=== PATIENT | female | born 1965 | race African-American/Black ===

== ENCOUNTER 2021-10-14 17:43 | Inpatient (IN) | payer OTHER, MEDICAID, SELFPAY ==
--- NOTE | 2021-10-14 | ECG_ITS ---
Test Reason : DYSPNEA Blood Pressure : / mmHG Vent. Rate : 096 BPM Atrial Rate : 096 BPM P-R Int : 158 ms QRS Dur : 086 ms QT Int : 372 ms P-R-T Axes : 053 -07 076 degrees QTc Int : 469 ms Sinus rhythm with Premature atrial complexes Cannot rule out Anterior infarct , age undetermined Abnormal ECG No previous ECGs available Referred By: Generic ED Physician Electronically Signed By:JUDIE VAZQUEZ MD
--- NOTE | ~2021-10-14 | XR_ITS ---
EXAMINATION: XR CHEST CLINICAL INFORMATION: Dyspnea COMPARISON: None TECHNIQUE: 2 views of the chest were obtained. FINDINGS: No significant abnormality is noted involving the heart, lungs, mediastinum, bony thorax or soft tissues. XR/XR chest 2V IMPRESSION: Unremarkable examination.
--- NOTE | ~2021-10-14 | CT_ITS ---
EXAMINATION: CT ABDOMEN AND PELVIS WITHOUT CONTRAST CLINICAL INFORMATION: Acute renal failure COMPARISON: None TECHNIQUE: Multidetector volumetric imaging was performed from the superior aspect of the liver through the pubic symphysis. Sagittal and coronal reformatted images were obtained on the technologist's workstation. This CT examination was performed using dose optimization techniques as appropriate, variously including the following: *Automated exposure control *Adjustment of mA and/or kV according to patient size (this includes techniques or standardized protocols for targeted exams where dose is matched to indication/reason for exam; i.e. extremities or head) *Use of iterative reconstruction technique DLP: 712 mGy-cm FINDINGS: LUNG BASES: There is a 0.4 cm right lower lobe nodule seen on series 4 image 1. There is a separate 0.4 cm right lower lobe nodule on image 14. Right lower lobe groundglass nodular density measures 0.6 cm on image 28. Additional small nodules are present in the right middle lobe. Coronary artery calcifications. LIVER, GALLBLADDER, AND BILIARY TREE: The liver is enlarged measuring 21 cm in CC dimension. There is normal shape and attenuation. No focal hepatic lesion or biliary ductal dilatation is present. Cholecystectomy. PANCREAS: There is one calcification seen in the pancreatic parenchyma at the level of the pancreatic tail. Otherwise the parenchyma is homogenous with no ductal dilatation. SPLEEN: Unremarkable. ADRENAL GLANDS: Unremarkable. KIDNEYS AND URETERS: The kidneys are normal in size, shape, and attenuation. No hydronephrosis, hydroureter, or calculi seen. No perinephric stranding. Calcification in the hilar region of the right kidney is likely vascular. BLADDER: Unremarkable. GASTROINTESTINAL TRACT: The stomach is unremarkable. Normal caliber of the small bowel. No obstruction. Normal appendix. No colonic wall thickening or inflammatory change. Scattered diverticulosis without diverticulitis. No free air or free fluid. ABDOMINAL WALL: No significant hernia is appreciated. LYMPH NODES: No lymphadenopathy. Appearance of a angela mesentery . VASCULAR: Normal caliber aorta with mild atherosclerotic calcification. PELVIC VISCERA: The uterus and adnexa are unremarkable. OSSEOUS STRUCTURES: No acute or suspicious osseous abnormality. Mild degenerative change in the spine. CT/CT abdomen pelvis wo con IMPRESSION: No acute findings in the abdomen or pelvis. No hydronephrosis or nephrolithiasis. Hepatomegaly. Multiple pulmonary nodules are seen at the lung bases. This includes solid nodules measuring up to 0.4 cm groundglass nodule at 0.6 cm. According to the UPDATED 2017 Fleischner Society recommendations, the advised follow-up imaging for a single pure ground-glass nodule measuring 6 mm or greater is: CT at 6-12 months to confirm persistence, then CT every 2 years until 5 years if it persists. Fleischner guidelines were followed.
--- NOTE | ~2021-10-14 | US_ITS ---
EXAMINATION: US VENOUS ULTRASOUND WITH DOPPLER LOWER EXTREMITY, BILATERAL CLINICAL INFORMATION: Leg swelling. COMPARISON: None TECHNIQUE: Ultrasound of the deep veins is performed from the hip to the calf with compression sonography and color and pulse Doppler assessment. Spectral analysis with color-flow imaging is performed. FINDINGS: RIGHT: There is normal venous compression and respiratory variation and augmented flow. The visualized common femoral vein, superficial femoral vein, profunda femoral vein, popliteal vein, and the trifurcation region shows no evidence of deep venous thrombosis. There is no significant popliteal fossa cyst. Mild subcutaneous edema in the calves bilaterally. LEFT: There is normal venous compression and respiratory variation and augmented flow. The visualized common femoral vein, superficial femoral vein, profunda femoral vein, popliteal vein, and the trifurcation region shows no evidence of deep venous thrombosis. There is no significant popliteal fossa cyst. Mild subcutaneous edema in the calves bilaterally. If the patient's symptoms persist, followup ultrasound in 5 days 7 days might be of value to exclude proximal propagation from a non-visualized calf vein. US/US venous duplex LE BI IMPRESSION: No evidence for deep venous thrombosis in the visualized veins of the bilateral lower extremities.
[2021-10-14 17:46] VITALS: BP 159/105; PULSE 98; RESP 20; TEMP 36.4; O2SAT 98; BMI 33.8
[2021-10-14 19:05] LABS: MANUAL DIFF FLAG NO
[2021-10-14 19:13] LABS: Basophils Percent Auto 0.3 % (0-2); Eosinophils Absolute Auto 0.3 X10*3/uL (0.0-0.4); Eosinophils Percent Auto 4.5 % (0-4); Hematocrit 30.9 % (37.0-47.0); Hemoglobin 9.8 g/dl (12.0-16.0); Imm Gran Abs Auto 0.02 X10*3/uL (0.00-0.03); Imm Gran Pct Auto 0.3 % (0.0-0.4); Lymphocytes Percent Auto 33.8 % (20-40); Mean Corpuscular HGB Conc 31.7 g/dl (31.0-35.0); Mean Corpuscular Hemoglobin 28.7 pg (27.0-33.0); Mean Corpuscular Volume 90.4 fL (80.0-98.0); Mean Platelet Volume 10.1 fL (9.4-12.3); Monocytes Absolute Auto 0.6 X10*3/uL (0.1-1.2); Monocytes Percent Auto 9.2 % (2-11); Neutrophils Absolute Auto 3.1 x10*3/uL (2.0-8.3); Neutrophils Percent Auto 51.9 % (45-73); Platelet Count 216 X10*3/uL (160-400); Red Blood Count 3.42 X10*6/uL (4.20-5.50); Red Cell Distribution Width 14.9 % (11.0-16.0)
[2021-10-14 19:21] LABS: Anion Gap 14 (12-20); Blood Urea Nitrogen 31 mg/dL (9-16); Calcium 9.6 mg/dL (8.4-10.2); Carbon Dioxide 21 mmol/L (22-29); Chloride 110 mmol/L (96-108); Creatinine Clr Calc Pharmacy 26.9; Estimated Glomerular Filt Rate 22; Glucose Random 273 mg/dL (60-115); Potassium 4.1 mmol/L (3.3-5.1); Sodium 141 mmol/L (135-145)
[2021-10-14 21:04] VITALS: O2SAT 97
--- NOTE | 2021-10-14 21:25 | ED_ITS ---
HPI - General Adult General Chief complaint: Dyspnea Stated complaint: Asthma Time Seen by Provider: 10/14/21 21:21 Source: patient and family (son) Mode of arrival: ambulatory Limitations: no limitations History of Present Illness HPI narrative: Patient is a 56 year old female presenting to the emergency department today with increased SOB x1 week. Patient states that over the last week, she has had an increase in shortness of breath. Patient states that she has a history of diabetes that she doesn't manage and hypertension for which she does take medications. Patient states that she has felt more winded and has been having lower leg swelling. Patient denies any dizziness, lightheadedness, abdominal pain, nausea, vomiting, fever, chills, blurry vision, double vision, loss of vision, chest pain, back pain, night sweats, pain with urination, increased urinary frequency, increased urinary urgency, blood in her urine or stool, syncope or a near syncopal episode, recent trauma or falls, bowel incontinence, bladder incontinence, bowel retention, bladder retention, or any other complaints at this time. Onset (ago): week(s) (1) Relieving factors: none Associated symptoms: shortness of breath Treatments prior to arrival: none Related Data Home Medications Medication Instructions Recorded Confirmed amlodipine 10 mg tablet 1 tab PO DAILY 10/14/21 10/14/21 clonidine HCl 0.1 mg tablet 1 tab PO DAILY 10/14/21 10/14/21 insulin glargine 100 unit/mL (3 16 unit SUBCUT BEDTIME 10/14/21 10/14/21 mL) subcutaneous pen (Lantus Solostar U-100 Insulin) Allergies Allergy/AdvReac Type Severity Reaction Status Date / Time shellfish derived Allergy Anaphylaxis Verified 10/14/21 17:49 Review of Systems Constitutional: Constitutional: Reports no additional constitutional complaints, Denies chills, Denies fever(s) and Denies night sweats Eyes: Eyes: Reports no additional eye complaints, Denies blurry vision, Denies change in vision, Denies diplopia, Denies eye discharge, Denies loss of vision and Denies eye pain ENT: Denies dizziness Cardiovascular: Cardiovascular: Reports no additional cardiovascular complaints, Denies chest pain, Reports leg edema, Denies lightheadedness, Denies Loss of Consciousness and Reports dyspnea Respiratory: Respiratory: Reports no additional respiratory complaints and Reports dyspnea Gastrointestinal: Gastrointestinal: Reports no additional gastrointestinal complaints, Denies abdominal pain, Denies melena, Denies hematochezia, Denies change in bowel habits and Denies change in stool character Genitourinary: Genitourinary: Denies hematuria, Denies urinary frequency, Denies dysuria, Denies urinary incontinence, Denies urinary hesitancy and Denies urinary urgency Musculoskeletal: Musculoskeletal: Reports no additional musculoskeletal complaints, Denies numbness and Denies tingling Neurologic: Denies dizziness, Denies loss of vision, Denies numbness and Denies tingling Psychiatric: Psychiatric: Reports no additional psychiatric complaints Endocrine: Endocrine: Reports no additional endocrine complaints Hematologic/Lymphatic: Hematologic/Lymphatic: Reports no additional hematologic/lymphatic complaints Allergic/Immunologic: Allergic/Immunologic: Reports no additional allergic/immunologic complaints PMFSH Past Medical History Attestation statement: The following information was validated with the patient. Source: old records reviewed Medical History Asthma Diabetes 1.5, managed as type 2 HTN (hypertension) Social History Social History Advance Directives: No Advance Directives Information Provided: No Physical Exam ED Vital Signs: Vital Signs - 24 hr 10/14/21 17:46 10/14/21 21:04 10/14/21 22:10 Temperature 97.5 F Pulse Rate 98 100 Respiratory Rate 20 16 Blood Pressure 159/105 H Pulse Oximetry 98 97 99 10/14/21 22:27 Temperature 98.2 F Pulse Rate 98 Respiratory Rate 15 Blood Pressure 168/89 H Pulse Oximetry 98 BMI result Body Mass Index 33.8 Const General: cooperative, no acute distress, alert and awake Nutritional Appearance: well nourished Orientation/consciousness: patient oriented x3 Limitations: no limitations [facility] Head: Yes normal to inspection and Yes atraumatic Ears: hearing grossly normal bilaterally and external ears normal General nose exam: Normal external nose present, no nasal discharge noted and no epistaxis Face and sinus: Yes normal facial exam, No abrasion and No laceration Mouth: Normal oral and palatal mucosa present, no drooling and no muffled voice Eyes General: appearance normal, both eyes and all related structures Periorbital: periorbital findings normal Eyelids: Yes eyelids normal Conjunctivae: conjunctivae normal Pupils: Equal, round and reactive pupils present EOM: EOMs intact bilaterally Neck Neck: Yes normal visual inspection, Yes full ROM and Yes no lymphadenopathy Chest Chest palpation & inspection: normal inspection of the chest Resp Effort & Inspection: normal respiratory effort and able to speak in complete sentences Auscultation: other (patient's lung sounds are restricted bilaterally) Cardio Rate: regular rate Rhythm: regular rhythm GI Inspection: Yes normal to inspection Neuro General: patient oriented x3 and moves all extremities Cranial nerves: Yes Equal, round and reactive pupils present Cognition (Neuro): normal cognition Motor exam (neuro): 5/5 motor strength present throughout Sensory Exam: Normal double simultaneous stimulation for sensation Coordination: [id number] test normal Extrem General: Yes normal to inspection, Yes full ROM and Yes capillary refill normal Psych Appearance: grossly normal Mental Status: mental status grossly normal Affect: normal affect Attitude: cooperative Thought process: Normal thought process present Thought content: Normal thought content present Insight: Good insight present (Psych) Medical Decision Making MDM Narrative Medical decision making narrative: Patient is a 56 year old female presenting to the emergency department today with increased shortness of breath. Patient's physical exam showed bilateral restricted lung sounds and mild lower leg edema. Patient's blood work showed an elevated BUN and Creatinine, consistent with an KATHIE. Patient's urine showed elevated glucose levels. Patient's EKG was unremarkable. Patient's chest x-ray and abdominal CT showed no acute process. I explained my physical exam findings as well as all test results to the patient and the patient's son. I answered all questions asked by the patient and the patient's son. I called and spoke to Dr. Bishop who agreed to admission of the patient. Patient and the patient's son verbalized agreement and understanding with this treatment plan and admission. Differential Diagnosis Differential Diagnosis: KATHIE, uncontrolled diabetes Medical Records Medical records reviewed: Yes I reviewed the patient's medical records. Lab Data Lab results reviewed: Yes I reviewed the patient's lab results. Result diagrams: 10/14/21 19:00 10/14/21 19:00 Labs: Lab Results 10/14/21 10/14/21 10/14/21 Range/Units 19:00 19:00 19:00 WBC 6.0 (4.8-10.8) X10*3/uL RBC 3.42 L (4.20-5.50) X10*6/uL Hgb 9.8 L (12.0-16.0) g/dl Hct 30.9 L (37.0-47.0) % MCV 90.4 (80.0-98.0) fL MCH 28.7 (27.0-33.0) pg MCHC 31.7 (31.0-35.0) g/dl RDW 14.9 (11.0-16.0) % Plt Count 216 (160-400) X10*3/uL MPV 10.1 (9.4-12.3) fL Immature Gran % (Auto) 0.3 (0.0-0.4) % Neut % (Auto) 51.9 (45-73) % Lymph % (Auto) 33.8 (20-40) % [place] % (Auto) 9.2 (2-11) % Eos % (Auto) 4.5 H (0-4) % Baso % (Auto) 0.3 (0-2) % Lymph # (Auto) 2.0 (1.2-4.9) X10*3/uL [place] # (Auto) 0.6 (0.1-1.2) X10*3/uL Eos # (Auto) 0.3 (0.0-0.4) X10*3/uL Baso # (Auto) 0.0 (0.0-0.2) X10*3/uL Abs Immat Gran (auto) 0.02 (0.00-0.03) X10*3/uL Absolute Neuts (auto) 3.1 (2.0-8.3) x10*3/uL Absolute Nucleated RBC 0.000 (0.0-0.012) X10*3/uL Nucleated RBC % (auto) 0.0 (0.0-0.2) /100WBC Sodium 141 (135-145) mmol/L Potassium 4.1 (3.3-5.1) mmol/L Chloride 110 H (96-108) mmol/L Carbon Dioxide 21 L (22-29) mmol/L Anion Gap 14 (12-20) BUN 31 H (9-16) mg/dL Creatinine 2.34 H (0.5-1.4) mg/dL Estim Creat Clear Calc 26.9 Estimated GFR 22 Random Glucose 273 H (60-115) mg/dL Calcium 9.6 (8.4-10.2) mg/dL Magnesium 1.7 (1.6-2.6) mg/dL Total Bilirubin 0.2 (0.0-1.0) mg/dL Direct Bilirubin < 0.2 (0.0-0.5) mg/dL AST 11 (5-31) U/L ALT 6 (0-31) U/L Alkaline Phosphatase 116 (39-117) U/L Total Creatine Kinase 92 (26-140) U/L Troponin I High Sens 8.5 (<3.5-17.0) ng/L B-Natriuretic Peptide 26 (<100) pg/mL Total Protein 7.1 (6.5-8.0) g/dL Albumin 4.1 (3.5-5.0) g/dL Urine Color Urine Appearance Urine pH (5.0-8.0) Ur Specific [place] (1.005-1.025) Urine Protein (NEG-TRACE) MG/DL Urine Glucose (UA) (NEG) MG/DL Urine Ketones (NEG) MG/DL Urine Blood (NEG) Urine Nitrite (NEG) Ur Leukocyte Esterase (NEG) Urine RBC (0) /HPF Urine WBC (0-4) /HPF Ur Squamous Epith Cells /LPF Urine Bacteria /LPF COVID-19 (LUCY) (Negative) COVID-19 Clin Com Influenza Type A (JEMAL) (Negative) Influenza Type B (JEMAL) (Negative) Influenza A & B Note 10/14/21 10/14/21 10/14/21 Range/Units 22:01 22:01 22:01 WBC (4.8-10.8) X10*3/uL RBC (4.20-5.50) X10*6/uL Hgb (12.0-16.0) g/dl Hct (37.0-47.0) % MCV (80.0-98.0) fL MCH (27.0-33.0) pg MCHC (31.0-35.0) g/dl RDW (11.0-16.0) % Plt Count (160-400) X10*3/uL MPV (9.4-12.3) fL Immature Gran % (Auto) (0.0-0.4) % Neut % (Auto) (45-73) % Lymph % (Auto) (20-40) % [place] % (Auto) (2-11) % Eos % (Auto) (0-4) % Baso % (Auto) (0-2) % Lymph # (Auto) (1.2-4.9) X10*3/uL [place] # (Auto) (0.1-1.2) X10*3/uL Eos # (Auto) (0.0-0.4) X10*3/uL Baso # (Auto) (0.0-0.2) X10*3/uL Abs Immat Gran (auto) (0.00-0.03) X10*3/uL Absolute Neuts (auto) (2.0-8.3) x10*3/uL Absolute Nucleated RBC (0.0-0.012) X10*3/uL Nucleated RBC % (auto) (0.0-0.2) /100WBC Sodium (135-145) mmol/L Potassium (3.3-5.1) mmol/L Chloride (96-108) mmol/L Carbon Dioxide (22-29) mmol/L Anion Gap (12-20) BUN (9-16) mg/dL Creatinine (0.5-1.4) mg/dL Estim Creat Clear Calc Estimated GFR Random Glucose (60-115) mg/dL Calcium (8.4-10.2) mg/dL Magnesium (1.6-2.6) mg/dL Total Bilirubin (0.0-1.0) mg/dL Direct Bilirubin (0.0-0.5) mg/dL AST (5-31) U/L ALT (0-31) U/L Alkaline Phosphatase (39-117) U/L Total Creatine Kinase (26-140) U/L Troponin I High Sens (<3.5-17.0) ng/L B-Natriuretic Peptide (<100) pg/mL Total Protein (6.5-8.0) g/dL Albumin (3.5-5.0) g/dL Urine Color YELLOW Urine Appearance CLEAR Urine pH 6.0 (5.0-8.0) Ur Specific [place] 1.025 (1.005-1.025) Urine Protein 2+ H (NEG-TRACE) MG/DL Urine Glucose (UA) 100 H (NEG) MG/DL Urine Ketones NEG (NEG) MG/DL Urine Blood TRACE (NEG) Urine Nitrite NEG (NEG) Ur Leukocyte Esterase NEG (NEG) Urine RBC 1-4 (0) /HPF Urine WBC 1-4 (0-4) /HPF Ur Squamous Epith Cells 1+ /LPF Urine Bacteria 1+ /LPF COVID-19 (LUCY) Negative (Negative) COVID-19 Clin Com See Note Influenza Type A (JEMAL) Negative (Negative) Influenza Type B (JEMAL) Negative (Negative) Influenza A & B Note See Note Imaging Data Chest x-ray: Attestation: I personally reviewed and interpreted this imaging study as follows: Radiologist's impression: EXAMINATION: XR CHEST CLINICAL INFORMATION: Dyspnea COMPARISON: None TECHNIQUE: 2 views of the chest were obtained. FINDINGS: No significant abnormality is noted involving the heart, lungs, mediastinum, bony thorax or soft tissues. XR/XR chest 2V IMPRESSION: Unremarkable examination. Dictated By: Devora Fan MD Signed By: Electronically signed by Devora Fan MD 10/14/[address] scan - abdomen: Attestation: I personally reviewed and interpreted this imaging study as follows: My impression: No acute process. Radiologist's impression: EXAMINATION: CT ABDOMEN AND PELVIS WITHOUT CONTRAST? CLINICAL INFORMATION: Acute renal failure? COMPARISON: None? TECHNIQUE: Multidetector volumetric imaging was performed from the superior aspect of the liver through the pubic symphysis. Sagittal and coronal reformatted images were obtained on the technologist's workstation.? This CT examination was performed using dose optimization techniques as appropriate, variously including the following: *Automated exposure control *Adjustment of mA and/or kV according to patient size (this includes techniques or standardized protocols for targeted exams where dose is matched to indication/reason for exam; i.e. extremities or head) *Use of iterative reconstruction technique DLP: 712 mGy-cm FINDINGS: LUNG BASES: There is a 0.4 cm right lower lobe nodule seen on series 4 image 1. There is a separate 0.4 cm right lower lobe nodule on image 14. Right lower lobe groundglass nodular density measures 0.6 cm on image 28. Additional small nodules are present in the right middle lobe. Coronary artery calcifications.? LIVER, GALLBLADDER, AND BILIARY TREE: The liver is enlarged measuring 21 cm in CC dimension. There is normal shape and attenuation. No focal hepatic lesion or biliary ductal dilatation is present. Cholecystectomy.? PANCREAS: There is one calcification seen in the pancreatic parenchyma at the level of the pancreatic tail. Otherwise the parenchyma is homogenous with no ductal dilatation.? SPLEEN: Unremarkable.? ADRENAL GLANDS: Unremarkable.? KIDNEYS AND URETERS: The kidneys are normal in size, shape, and attenuation. No hydronephrosis, hydroureter, or calculi seen. No perinephric stranding. Calcification in the hilar region of the right kidney is likely vascular.? BLADDER: Unremarkable.? GASTROINTESTINAL TRACT: The stomach is unremarkable. Normal caliber of the small bowel. No obstruction. Normal appendix. No colonic wall thickening or inflammatory change. Scattered diverticulosis without diverticulitis. No free air or free fluid.? ABDOMINAL WALL: No significant hernia is appreciated.? LYMPH NODES: No lymphadenopathy. Appearance of a angela mesentery . VASCULAR: Normal caliber aorta with mild atherosclerotic calcification. PELVIC VISCERA: The uterus and adnexa are unremarkable.? OSSEOUS STRUCTURES: No acute or suspicious osseous abnormality. Mild degenerative change in the spine.? CT/CT abdomen pelvis wo con IMPRESSION: No acute findings in the abdomen or pelvis. No hydronephrosis or nephrolithiasis. ? Hepatomegaly. ? Multiple pulmonary nodules are seen at the lung bases. This includes solid nodules measuring up to 0.4 cm groundglass nodule at 0.6 cm. According to the UPDATED 2017 Fleischner Society recommendations, the advised follow-up imaging for a single pure ground-glass nodule measuring 6 mm or greater is: CT at 6-12 months to confirm persistence, then CT every 2 years until 5 years if it persists. ? ? Fleischner guidelines were followed. Dictated By: Waylon Coyle MD Signed By: Electronically signed by Waylon Coyle MD 10/14/21 5392 ECG Data Attestation: I personally reviewed and interpreted this ECG as follows: Prior ECG tracings: not available for review Interpretation: Sinus rhythm with premature atrial complexes Vent. rate: 96BPM DE interval: 158ms QRS duration: 86ms QT/QTC-Baz: 372/469ms P-R-T axes: 53 -7 76 Discharge Plan Discharge Patient Disposition: Admitted As Inpatient Prescriptions: No Action clonidine HCl 0.1 mg tablet 1 tab PO DAILY 0RF amlodipine 10 mg tablet 1 tab PO DAILY 0RF Lantus Solostar U-100 Insulin 100 unit/mL (3 mL) insulin pen 16 unit subcut BEDTIME 0RF Print Language: Citizen Of [place]
[2021-10-14 22:10] VITALS: PULSE 100; RESP 16; O2SAT 99
[2021-10-14 22:18] LABS: B Type Natriuretic Peptide 26 pg/mL (<100); Troponin-I High Sensitivity 8.5 ng/L (<3.5-17.0)
[2021-10-14 22:18] LABS: Appearance Urine CLEAR; Color Urine YELLOW; Glucose Urine UA 100 MG/DL (NEG); Leukocyte Esterase Urine NEG (NEG); Nitrite Urine NEG (NEG); Specific Gravity - Urine 1.025 (1.005-1.025); UACC Culture Trigger NO; Urine Blood TRACE (NEG); Urine Ketones NEG (NEG); Urine Protein 2+ MG/DL (NEG-TRACE)
[2021-10-14] MEDS: Albuterol/Iprat 2.5/0.5MG 3 ML AMPUL.NEB INHALE (22:18)
[2021-10-14 22:22] LABS: Alanine Aminotransferase 6 U/L (0-31); Albumin Level 4.1 g/dL (3.5-5.0); Alkaline Phosphatase 116 U/L (39-117); Aspartate Amino Transferase 11 U/L (5-31); Bilirubin Direct < 0.2 mg/dL (0.0-0.5); Bilirubin Total 0.2 mg/dL (0.0-1.0); Magnesium 1.7 mg/dL (1.6-2.6); Total Protein 7.1 g/dL (6.5-8.0)
[2021-10-14 22:27] VITALS: BP 168/89; PULSE 98; RESP 15; TEMP 36.8; O2SAT 98
[2021-10-14 22:28] LABS: Bacteria Urine 1+ /LPF; Squamous Epithelial Cell Urine 1+ /LPF
[2021-10-14 22:34] LABS: COVID-19 Test Negative (Negative)
[2021-10-14 22:35] LABS: IDNOW Serial# 16C4AD1C; Influenza A Negative (Negative); Influenza B2 Negative (Negative)
--- NOTE | 2021-10-14 23:28 | PM.IMHP ---
History of Present Illness Date of Service: 10/14/21 Chief Complaint: SOB 56-year-old female with a past medical history of hypertension, diabetes presented to the hospital with a chief complaint of shortness of breath. Patient reports that over the past 4 days she has been having shortness of breath which has been gradually worsening; worse on exertion. Also complains of occasional orthopnea. Denies any chest pain. Mentions that she has been having wheezing. Denies any fever chills cough or sputum production. Denies any palpitations, lightheadedness or dizziness. Patient also mentioned that all past couple days she noted significant swelling in her legs. Reported decreased energy levels. Mentioned that she has been complaint with her home medications. Denies any GI symptoms. Review of all other systems is negative except mentioned above ER course: Per ER team patient noted to have mild pedal edema; chest x-ray showed no acute findings; CT scan showed pulmonary nodules; on labs noted to have KATHIE. Admitted to the hospital for further management. EKG was nonischemic. Troponins x2 negative. [facility] Medical History Asthma Diabetes 1.5, managed as type 2 HTN (hypertension) Pertinent family history: Diabetes runs in the family Social History Advance Directives: No Advance Directives Information Provided: No Meds Allergies Allergy/AdvReac Type Severity Reaction Status Date / Time shellfish derived Allergy Anaphylaxis Verified 10/14/21 17:49 Active Medications: Current Medications Acetaminophen (Acetaminophen 325 Mg Tablet) 650 mg PO Q6H PRN PRN Reason: Pain, Mild (Pain Scale 1-3) Albuterol/Ipratropium (Albuterol/Iprat 2.5/0.5mg 3 Ml Ampul.Neb) 3 ml INHALE RQ4H PRN PRN Reason: Shortness of Breath/Wheezing Benzonatate (Benzonatate 100 Mg Capsule) 100 mg PO TID PRN PRN Reason: Cough Enoxaparin Sodium (Enoxaparin Sodium 40 Mg/0.4 Ml Syringe) 40 mg SUBCUT Q24H MICHI Sodium Chloride (Ns) 1,000 mls @ 100 mls/hr IVCONT .Q10H MICHI Melatonin (Melatonin 3 Mg Tablet) 6 mg PO BEDTIME PRN PRN Reason: Insomnia Senna (Sennosides 8.6 Mg Tablet) 17.2 mg PO BEDTIME PRN PRN Reason: Constipation Sodium Chloride (0.9 % Sodium Chloride Flush 3 Ml Syringe) 3 ml IVFLUSH QSHIFT [facility] Home Medications Medication Instructions Recorded Confirmed Last Taken Type amlodipine 10 mg tablet 1 tab PO DAILY 10/14/21 10/14/21 Unknown History clonidine HCl 0.1 mg tablet 1 tab PO DAILY 10/14/21 10/14/21 Unknown History insulin glargine 100 unit/mL (3 16 unit SUBCUT BEDTIME 10/14/21 10/14/21 Unknown History mL) subcutaneous pen (Lantus Solostar U-100 Insulin) Physical Exam Vital Signs and Narrative: Vital Signs: Last Vital Signs Temp 98.2 F 10/14/21 22:27 Pulse 98 10/14/21 22:27 Resp 15 10/14/21 22:27 BP 168/89 H 10/14/21 22:27 Pulse Ox 98 10/14/21 22:27 BMI result Body Mass Index 33.8 Gen: Appears be in no acute distress HEENT: NCAT, Moist mucosa. Pulmonary: slightly coarse breath sounds; occasional expiratory wheezing noted; CVS: Normal S1-S2 Abdomen: BS+, Soft, Nontender Extremities: Warm well perfused; 2+ pitting edema noted Neuro: Alert and awake. Results Labs CBC and Chem 7: 10/14/21 19:00 10/14/21 19:00 Labs: Laboratory Results - last 24 hr 10/14/21 10/14/21 10/14/21 19:00 19:00 19:00 MCV 90.4 MCH 28.7 MCHC 31.7 RDW 14.9 Plt Count 216 MPV 10.1 Immature Gran % (Auto) 0.3 Neut % (Auto) 51.9 Lymph % (Auto) 33.8 [place] % (Auto) 9.2 Eos % (Auto) 4.5 H Baso % (Auto) 0.3 Lymph # (Auto) 2.0 [place] # (Auto) 0.6 Eos # (Auto) 0.3 Baso # (Auto) 0.0 Abs Immat Gran (auto) 0.02 Absolute Neuts (auto) 3.1 Absolute Nucleated RBC 0.000 Nucleated RBC % (auto) 0.0 Anion Gap 14 Estim Creat Clear Calc 26.9 Estimated GFR 22 Random Glucose 273 H Calcium 9.6 Magnesium 1.7 Total Bilirubin 0.2 Direct Bilirubin < 0.2 AST 11 ALT 6 Alkaline Phosphatase 116 Total Creatine Kinase 92 Troponin I High Sens 8.5 B-Natriuretic Peptide 26 Total Protein 7.1 Albumin 4.1 Urine Color Urine Appearance Urine pH Ur Specific [place] Urine Protein Urine Glucose (UA) Urine Ketones Urine Blood Urine Nitrite Ur Leukocyte Esterase Urine RBC Urine WBC Ur Squamous Epith Cells Urine Bacteria COVID-19 (LUCY) COVID-19 Clin Com Influenza Type A (JEMAL) Influenza Type B (JEMAL) Influenza A & B Note 10/14/21 10/14/21 10/14/21 22:01 22:01 22:01 MCV MCH MCHC RDW Plt Count MPV Immature Gran % (Auto) Neut % (Auto) Lymph % (Auto) [place] % (Auto) Eos % (Auto) Baso % (Auto) Lymph # (Auto) [place] # (Auto) Eos # (Auto) Baso # (Auto) Abs Immat Gran (auto) Absolute Neuts (auto) Absolute Nucleated RBC Nucleated RBC % (auto) Anion Gap Estim Creat Clear Calc Estimated GFR Random Glucose Calcium Magnesium Total Bilirubin Direct Bilirubin AST ALT Alkaline Phosphatase Total Creatine Kinase Troponin I High Sens B-Natriuretic Peptide Total Protein Albumin Urine Color YELLOW Urine Appearance CLEAR Urine pH 6.0 Ur Specific [place] 1.025 Urine Protein 2+ H Urine Glucose (UA) 100 H Urine Ketones NEG Urine Blood TRACE Urine Nitrite NEG Ur Leukocyte Esterase NEG Urine RBC 1-4 Urine WBC 1-4 Ur Squamous Epith Cells 1+ Urine Bacteria 1+ COVID-19 (LUCY) Negative COVID-19 Clin Com See Note Influenza Type A (JEMAL) Negative Influenza Type B (JEMAL) Negative Influenza A & B Note See Note Imaging Radiologist's Impressions: Impressions Chest X-Ray 10/14/21 18:01 IMPRESSION: Unremarkable examination. Abdomen/Pelvis CT 10/14/21 22:45 IMPRESSION: No acute findings in the abdomen or pelvis. No hydronephrosis or nephrolithiasis. Hepatomegaly. Multiple pulmonary nodules are seen at the lung bases. This includes solid nodules measuring up to 0.4 cm groundglass nodule at 0.6 cm. According to the UPDATED 2017 Fleischner Society recommendations, the advised follow-up imaging for a single pure ground-glass nodule measuring 6 mm or greater is: CT at 6-12 months to confirm persistence, then CT every 2 years until 5 years if it persists. Fleischner guidelines were followed. Assessment and Plan (1) KATHIE (acute kidney injury): Status: Acute Plan 56-year-old female with a past medical history of hypertension, diabetes presented to the hospital with a chief complaint of shortness of breath. Shortness of breath/EDUARDO: Nebulizations p.r.n. EKG nonischemic; Troponinsx2 negative D-dimer negative No evidence of pneumonia proBNP 26 ->? falsely low secondary to obesity. Will obtain echocardiogram Patient noted to have 2+ pitting edema-> could be secondary to home amlodipine. Will obtain venous duplex as well. Supportive care KATHIE: Likely prerenal. Avoid nephrotoxins. Hold home hydrochlorothiazide. Nephrology consult. Multiple Pulmonary nodules: Outpatient PCP follow-up for surveillance CT scans. History of diabetes: Insulin sliding scale. Hold home Lantus for now. history of hypertension: Continue home amlodipine( If the workup above is negative to consider switching amlodipine to different antihypertensive at the time of discharge given pedal edema.) DVT prophylaxis: subcu heparin Code status: Full code Quality Stroke Does the patient have a stroke diagnosis?: No VTE Prior VTE?: No VTE Risk Level:: Medical - moderate - high VTE Device Contraindication: N/A - Device Ordered VTE Drug Contraindication: Treatment Not Indicated
[2021-10-15] VITALS (12 sets, daily range): BP systolic 122–181; BP diastolic 76–93; PULSE 74–106; RESP 12–22; TEMP 36.6–37.6; O2SAT 97–99
[2021-10-15 00:08] LABS: VBG Base Excess -5.8 mmol/L; VBG HCO3 18 mmol/L (22-26); VBG pCO2 32 mmHg; VBG pH 7.36 (7.32-7.43); VBG pO2 49 mmHg
[2021-10-15 00:10] LABS: Venous Blood Gas Refer to POC result
[2021-10-15 00:21] LABS: D Dimer High Sensitivity < 150 NG/ML
[2021-10-15] MEDS: Heparin Sodium,Porcine 5,000 UNIT/ML VIAL 5000 UNIT SUBCUT ×3 (00:27→16:48)
[2021-10-15] MEDS: 0.9 % Sodium Chloride Flush 3 ML SYRINGE IVFLUSH ×2 (00:28→16:49)
[2021-10-15] MEDS: 0.9 % Sodium Chloride 1,000 ML 100 ML IVCONT ×3 (00:28→19:35)
[2021-10-15 00:30] LABS: Troponin-I High Sensitivity 9.1 ng/L (<3.5-17.0)
[2021-10-15] MEDS: Acetaminophen 325 MG TABLET 650 MG PO ×2 (01:00→22:07)
--- NOTE | 2021-10-15 01:12 | PC.NURSE ---
pt c/o headache, medicated with PRN tylenol. pt given pillow, resting in bed at this time
--- NOTE | 2021-10-15 01:17 | PC.NURSE ---
pt called out to go to BR, pt disconnected from monitor and IV, pt ambulated to BR with no c/o dizziness
[2021-10-15] MEDS: Melatonin 3 MG TABLET 6 MG PO (02:42)
[2021-10-15] MEDS: Albuterol Sulfate (0.083%) 2.5 MG/3 ML VIAL.NEB 10 MG INHALE (03:28)
[2021-10-15 05:23] LABS: Anion Gap 14 (12-20); Blood Urea Nitrogen 31 mg/dL (9-16); Carbon Dioxide 21 mmol/L (22-29); Chloride 109 mmol/L (96-108); Creatinine Clr Calc Pharmacy 35.2; Estimated Glomerular Filt Rate 29; Glucose Random 224 mg/dL (60-115); Potassium 3.6 mmol/L (3.3-5.1); Sodium 140 mmol/L (135-145)
--- NOTE | 2021-10-15 07:00 | CA_ITS ---
Transthoracic Echocardiogram Patient (Last, First, Middle): Yeimy Nicolas, Gender: Female Date of : 1965 Age: 56 Procedure Date: 10/15/2021 Procedure Type: Transthoracic Echocardiogram Location: [facility] [place] Height: 157.48 cm Weight: 83.92 kg BSA: 1.85 m2 Heart Rate: bpm BP: 142 / 76 mmHg Director Electronics: ARIANNA Referring MD: Shahbaz Bishop MD Bagging Salvager: Lex Campos MD Symptoms: ?chf Study Quality: Adequate ECG Rhythm: Sinus Conclusions: - 1. Normal LV systolic function with severe LVH with impaired relaxation filling pattern and elevated filling pressures 2. At least moderately dilated left atrium 3. Mild aortic stenosis and regurgitation 4. At least moderate mitral and calcification with possible mild mitral stenosis 5. Normal RV systolic pressure 6. No gross pericardial effusion Findings Left Ventricle Normal left ventricular size and systolic function. There is severely increased left ventricular wall thickness. The visually estimated ejection fraction is between 60-65%. Spectral Doppler is indicative of an impaired relaxation filling pattern. Elevated filling pressures. E/E prime ratio is >15, consistent with elevated filling pressures. Right Ventricle Normal right ventricular cavity size and systolic function. Atria The left atrium is moderately dilated. There is lipomatous hypertrophy of the interatrial septum. There is no evidence of interatrial shunt. The right atrium is mildly dilated. Aortic Valve The aortic valve was not well visualized. There is moderate thickening of the aortic valve. There is mild aortic valve stenosis. The mean gradient is 13 mmHg. There is mild aortic valve regurgitation. Mitral Valve There is mild anterior and moderate posterior mitral leaflet thickening. There is moderate mitral annular calcification. There is trace mitral valve regurgitation. mild mitral stenosis cannot be entirely ruled out on this study Pulmonic Valve The pulmonic valve was not well visualized. There is trace pulmonic valve regurgitation. Tricuspid Valve There is trace tricuspid valve regurgitation. Normal right atrial pressure. There is no evidence of pulmonary hypertension. Great Vessels All visible segments of the aorta are normal in size. The pulmonary artery was not well visualized. Venous The inferior vena cava is normal in size and collapses greater than 50% with inspiration. Pericardium/Pleural There is no evidence of pericardial effusion. Prior Study Comparison No prior study available for comparison. Measurements 2D Linear Measurements IVSd: 1.64 0.6-0.9/0.6-1.0 cm LVIDd: 4.52 3.9-5.3/4.2-5.9 cm LVIDd Index: 2.44 2.4-3.2/2.2-3.1 cm/m2 LVIDs: 2.66 2.0-3.6 cm LVPWd: 1.68 0.7-1.1 cm Ao Root: 3.40 2.1-3.5 cm LA Diam: 4.00 2.7-3.8/3.0-4.0 cm LAIDs Index: 2.16 1.5-2.3 cm/m2 LV Mass: 405.13 67-162/88-224 g LV Mass Index: 218.99 43-95/49-115 g/m2 LVOT Diam: 2.10 3.0+(-)1.3 cm Mitral Valve MV VTI: 0.49 MV Pk David: 1.69 MV Mn David: 1.03 MV Pk Grad: 11.00 MV Mn Grad: 5.00 MV Pk E: 1.11 MV PK A: 1.45 MV Decel Time: 246.00 E/A: 0.80 E'Lateral: 6.96 E'Medial: 4.46 E/E' Med: 24.90 E/E' Lat: 15.90 PHT: 72.00 MVA PHT: 3.06 MVA Continuity: 2.17 Decel [place]: 4.52 Aortic Valve AoV Pk David: 2.45 AoV Mn David: 1.65 AoV VTI: 0.53 AoV Pk Grad: 24.00 Aov Mn Grad: 13.00 VIK Cont.VTI: 2.02 LVOT LVOT Pk David: 1.38 LVOT Mn David: 1.02 LVOT VTI: 0.31 LVOT Pk Grad: 8.00 LVOT Mn Grad: 5.00 LVOT Diam: 2.10 LVOT Area: 3.46 Diastolic Function MV Pk E: 1.11 MV Pk A: 1.45 E/A: 0.80 E'Medial: 4.46 E/E' Med: 24.90 E' Laterial: 6.96 E/E' Lat: 15.90 Right Ventricle TAPSE (mm): 30.00 TVS' David: 12.00 Tricuspid Valve TR Pk David: 2.23 TR Pk Grad: 20.00 RA Press: 3.00 RVSP: 23.00 Great Vessels Aorta Ao Root-2D: 3.40 2.0-3.7 cm Ao Asc: 3.60 2.1-3.4 cm Pulmonary Valve PV Pk David: 1.09 Peak PV Grad: 5.00 Updated in Other Vendor System with Status of Final Lex Campos MD electronically signed on 10/15/2021 5:40:30 PM with status of Final
[2021-10-15 07:10] LABS: Glucose, Whole Blood 250 mg/dL (60-115)
[2021-10-15] MEDS: Insulin Lispro 100 UNIT/ML 3 ML VIAL SUBCUT ×3 (07:34→16:48)
[2021-10-15] MEDS: Furosemide 20 MG/2 ML VIAL IVPUSH (07:36)
[2021-10-15 08:03] LABS: Lactate Dehydrogenase 162 U/L (122-220)
--- NOTE | 2021-10-15 08:13 | PHA.MEDREC ---
Pharmacy Consult ? Medication Reconciliation Pharmacy has reviewed the medication reconciliation compeleted by Henry. There are no remarkable issues. Trinh Liu, JerryD
[2021-10-15] MEDS: amLODIPine Besylate 10 MG TABLET PO (09:09)
--- NOTE | 2021-10-15 10:40 | MHC.CM.PN ---
Met with patient in regards to discharge planning. Patient lives with her daughter, ambulates independently and has AIRPORT RAMP SUPERVISOR hours [facility]. PCP is on [address] in [place]. CM group fitness assistant department head has been asked to verify which provider. Patient denies having a HCP. Information provided. Patient not interested in completing one at this time. Patient received 2 Pfizer vaccines but no booster. IMM explained and signed. Patient's daughter will transport her home when medically stable. Continue to monitor for d/c needs.
[2021-10-15] MEDS: cloNIDine HCL 0.1 MG TABLET PO (10:41)
[2021-10-15 11:51] LABS: Glucose, Whole Blood 214 mg/dL (60-115)
[2021-10-15 11:54] LABS: Iron 35 mcg/dL (30-160); Percent Iron Saturation 12 % (15-50); Total Iron Binding Capacity 294 mcg/dL (228-428); Unsaturated Iron Binding 259 ug/dL
[2021-10-15 11:55] LABS: Folate 4.1 ng/mL (> or = 4.0); Vitamin B12 461 pg/mL (200-900)
--- NOTE | 2021-10-15 13:27 | P.CONNP_ITS ---
History of Present Illness Reason for Consult Consult date: 10/15/21 Reason for consult: KATHIE Chief Complaint Chief complaint: SOB History of Present Illness Narrative: 56 year old female with past medical history of htn, diabetes who presented to the ED on 10/14/21 with increased SOB x1 week. Patient reported increased LE edema. Patient denies any dizziness, lightheadedness, abdominal pain, nausea, vomiting, fever, chills, blurry vision, double vision, loss of vision, chest pain, back pain, night sweats, pain with urination, increased urinary frequency, increased urinary urgency, blood in her urine or stool, syncope or a near syncopal episode, recent trauma or falls, bowel incontinence, bladder incontinence, bowel retention, bladder retention, or any other complaints. Her initial S-Cr was 2.34 mg/dL with unclear prior BL. She was started on IV loop diuretic with noted improvement in S-Cr on repeat labwork today. In ED, imaging performed showed no evidence of dvt on LE doppler, cxr normal, ct abd/pelvis without contrast reviewed with no hydronephrosis or calculi seen. ROS was otherwise negative. Review of Systems Review of Systems Yes all other systems are reviewed and are negative PMFSH Past Medical History Medical History Asthma Diabetes 1.5, managed as type 2 HTN (hypertension) Social History Social History Advance Directives: No Advance Directives Information Provided: No service: No Current occupational status: disabled Meds Allergies Allergy/AdvReac Type Severity Reaction Status Date / Time shellfish derived Allergy Anaphylaxis Verified 10/14/21 17:49 Active Medications: Current Medications Acetaminophen (Acetaminophen 325 Mg Tablet) 650 mg PO Q6H PRN PRN Reason: Pain, Mild (Pain Scale 1-3) Last Admin: 10/15/21 01:00 Dose: 650 mg Documented by: Albuterol/Ipratropium (Albuterol/Iprat 2.5/0.5mg 3 Ml Ampul.Neb) 3 ml INHALE RQ4H PRN PRN Reason: Shortness of Breath/Wheezing Albuterol/Ipratropium (Albuterol/Iprat 2.5/0.5mg 3 Ml Ampul.Neb) 3 ml INHALE RQ4H PRN PRN Reason: Shortness of Breath/Wheezing Amlodipine Besylate (Amlodipine Besylate 10 Mg Tablet) 10 mg PO DAILY [facility]; Protocol Last Admin: 10/15/21 09:09 Dose: 10 mg Documented by: Benzonatate (Benzonatate 100 Mg Capsule) 100 mg PO TID PRN PRN Reason: Cough Clonidine HCl (Clonidine Hcl 0.1 Mg Tablet) 0.1 mg PO DAILY [facility]; Protocol Last Admin: 10/15/21 10:41 Dose: 0.1 mg Documented by: Dextrose (Dextrose 50 % 25 Gm/50 Ml Syringe) 25 gm IVPUSH Q15M PRN; Protocol PRN Reason: per Hypoglycemia Standing Ord. Furosemide (Furosemide 20 Mg/2 Ml Vial) 20 mg IVPUSH DAILY@0800 [facility]; Protocol Last Admin: 10/15/21 07:36 Dose: 20 mg Documented by: Glucose (Glucose Gel 15 Gm Gel..Gram.) 15 gm PO Q15M PRN; Protocol PRN Reason: per Hypoglycemia Standing Ord. Heparin Sodium (Porcine) (Heparin Sodium,Porcine 5,000 Unit/Ml Vial) 5,000 unit SUBCUT Q8H [facility] Last Admin: 10/15/21 07:35 Dose: 5,000 unit Documented by: Sodium Chloride (Ns) 1,000 mls @ 100 mls/hr IVCONT .Q10H [facility] Last Admin: 10/15/21 11:12 Dose: 100 mls/hr Documented by: Insulin Human Lispro (Insulin Lispro 100 Unit/Ml 3 Ml Vial) 0 unit SUBCUT QIDACHS [facility]; Protocol Last Admin: 10/15/21 07:34 Dose: 4 unit Documented by: Melatonin (Melatonin 3 Mg Tablet) 6 mg PO BEDTIME PRN PRN Reason: Insomnia Last Admin: 10/15/21 02:42 Dose: 6 mg Documented by: Pharmacy Consult (Consult Rx Perform Med Rec) 1 each MISCELLANE ONCE PRN PRN Reason: Consult order Senna (Sennosides 8.6 Mg Tablet) 17.2 mg PO BEDTIME PRN PRN Reason: Constipation Sodium Chloride (0.9 % Sodium Chloride Flush 3 Ml Syringe) 3 ml IVFLUSH QSHIFT [facility] Last Admin: 10/15/21 09:06 Dose: Not Given Documented by: Home Medications Medication Instructions Recorded Confirmed Last Taken Type amlodipine 10 mg tablet 1 tab PO DAILY 10/14/21 10/14/21 Unknown History clonidine HCl 0.1 mg tablet 1 tab PO DAILY 10/14/21 10/14/21 Unknown History insulin glargine 100 unit/mL (3 16 unit SUBCUT BEDTIME 10/14/21 10/14/21 Unknown History mL) subcutaneous pen (Lantus Solostar U-100 Insulin) Physical Exam Vital Signs: Last Vital Signs Temp 98.4 F 10/15/21 10:42 Pulse 86 10/15/21 10:42 Resp 17 10/15/21 10:42 BP 148/91 H 10/15/21 10:42 Pulse Ox 98 10/15/21 10:42 BMI result Body Mass Index 33.8 Const General: cooperative and no acute distress HEENT Head: Yes normal to inspection, Yes normocephalic and Yes atraumatic Neck Neck: Yes no JVD Resp Effort & Inspection: normal respiratory effort Auscultation: clear to auscultation bilaterally Cardio Jugular venous distension: no JVD GI Auscultation: normal bowel sounds Neuro General: no focal motor deficits Extrem General: Yes edema Results Lab Results Result Diagrams: 10/14/21 19:00 10/15/21 04:23 Lab results: Chemistry 10/14/21 10/15/21 19:00 04:23 Sodium 141 140 Potassium 4.1 3.6 Carbon Dioxide 21 L 21 L BUN 31 H 31 H Creatinine 2.34 H 1.79 H Calcium 9.6 10.0 Hematology 10/14/21 19:00 WBC 6.0 Hgb 9.8 L Plt Count 216 Urinalysis 10/14/21 22:01 Urine Color YELLOW Urine Appearance CLEAR Urine pH 6.0 Ur Specific [place] 1.025 Urine Protein 2+ H Urine Glucose (UA) 100 H Urine Ketones NEG Urine Blood TRACE Urine Nitrite NEG Ur Leukocyte Esterase NEG Urine RBC 1-4 Urine WBC 1-4 Ur Squamous Epith Cells 1+ Assessment and Plan (1) KATHIE (acute kidney injury): Status: Acute Plan Problem List: KATHIE Edema proteinuria anemia #) KATHIE, non-oliguric Noted glucosuria on UA which could indicate low volume state from osmotic diuresis further exacerbated with home thiazide diuretic. BS control per primary team. KATHIE- resolving 2+ protein. will add macr and tpcr. albumin ok. CT abd/pelvis results noted. no hydronephrosis or calculi seen Monitor I/O's avoidance of nsaids, acei/arb, thiazide diuretics, IV contrast, renal dosing abx. #)Anemia: Anemia with TSAT = 12%. Suggest 250 mg IV iron x 2 doses #) CKD-MBD: Add vitD level, PTH, Procedures Date of Service Date of Service: 10/15/21
--- NOTE | 2021-10-15 13:29 | P.PNIM_ITS ---
Subjective Subjective Date of Service: 10/15/21 Interval History: the patient was seen and evaluated this morning Laying in bed, feels mild improvement in her shortness of breath and wheezing Reported edema did improve as well Denies any fever, chills or chest pain No reported other overnight events. Systemic review: No fever, chills or weakness No chest pain, palpitation but noticed edema in her lower extremities Reporting dyspnea with exertion with wheezing No abdominal pain, nausea or vomiting No urinary symptoms No any rash or wounds Physical Exam Vital Signs: Vital Signs: Last Vital Signs Temp 98.4 F 10/15/21 10:42 Pulse 86 10/15/21 10:42 Resp 17 10/15/21 10:42 BP 148/91 H 10/15/21 10:42 Pulse Ox 98 10/15/21 10:42 BMI result Body Mass Index 33.8 Const: Other: Constitutional : Alert, oriented, not in distress Neck : Normal inspection, Supple Cardiovascular : RRR, no JVP, +1 bilateral lower extremity edema Respiratory : fair bilateral air entry, no crackles, scattered bilateral wheezes Gastrointestinal: soft, lax, Normal bowel sounds, Non tender Skin : Warm, Dry Neurological : Alert & oriented x3, No focal deficit , CN 2-12 within normal Objective Data Active Medications Acetaminophen (Acetaminophen 325 Mg Tablet) 650 mg PO Q6H PRN PRN Reason: Pain, Mild (Pain Scale 1-3) Last Admin: 10/15/21 01:00 Dose: 650 mg Documented by: PAULETTE Albuterol/Ipratropium (Albuterol/Iprat 2.5/0.5mg 3 Ml Ampul.Neb) 3 ml INHALE RQ4H PRN PRN Reason: Shortness of Breath/Wheezing Albuterol/Ipratropium (Albuterol/Iprat 2.5/0.5mg 3 Ml Ampul.Neb) 3 ml INHALE RQ4H PRN PRN Reason: Shortness of Breath/Wheezing Amlodipine Besylate (Amlodipine Besylate 10 Mg Tablet) 10 mg PO DAILY [facility]; Protocol Last Admin: 10/15/21 09:09 Dose: 10 mg Documented by: JOAQUIN Benzonatate (Benzonatate 100 Mg Capsule) 100 mg PO TID PRN PRN Reason: Cough Clonidine HCl (Clonidine Hcl 0.1 Mg Tablet) 0.1 mg PO DAILY [facility]; Protocol Last Admin: 10/15/21 10:41 Dose: 0.1 mg Documented by: HIREN Dextrose (Dextrose 50 % 25 Gm/50 Ml Syringe) 25 gm IVPUSH Q15M PRN; Protocol PRN Reason: per Hypoglycemia Standing Ord. Furosemide (Furosemide 20 Mg/2 Ml Vial) 20 mg IVPUSH DAILY@0800 [facility]; Protocol Last Admin: 10/15/21 07:36 Dose: 20 mg Documented by: JOAQUIN Glucose (Glucose Gel 15 Gm Gel..Gram.) 15 gm PO Q15M PRN; Protocol PRN Reason: per Hypoglycemia Standing Ord. Heparin Sodium (Porcine) (Heparin Sodium,Porcine 5,000 Unit/Ml Vial) 5,000 unit SUBCUT Q8H [facility] Last Admin: 10/15/21 07:35 Dose: 5,000 unit Documented by: JOAQUIN Sodium Chloride (Ns) 1,000 mls @ 100 mls/hr IVCONT .Q10H [facility] Last Admin: 10/15/21 11:12 Dose: 100 mls/hr Documented by: HIREN Insulin Human Lispro (Insulin Lispro 100 Unit/Ml 3 Ml Vial) 0 unit SUBCUT QIDACHS [facility]; Protocol Last Admin: 10/15/21 07:34 Dose: 4 unit Documented by: JOAQUIN Melatonin (Melatonin 3 Mg Tablet) 6 mg PO BEDTIME PRN PRN Reason: Insomnia Last Admin: 10/15/21 02:42 Dose: 6 mg Documented by: PAULETTE Pharmacy Consult (Consult Rx Perform Med Rec) 1 each MISCELLANE ONCE PRN PRN Reason: Consult order Senna (Sennosides 8.6 Mg Tablet) 17.2 mg PO BEDTIME PRN PRN Reason: Constipation Sodium Chloride (0.9 % Sodium Chloride Flush 3 Ml Syringe) 3 ml IVFLUSH QSHIFT [facility] Last Admin: 10/15/21 09:06 Dose: Not Given Documented by: CYN Non-Admin Reason: Med Not Available Labs CBC & Chem 7: 10/14/21 19:00 10/15/21 04:23 Labs: Laboratory Results - last 24 hr 10/14/21 10/14/21 10/14/21 19:00 19:00 19:00 MCV 90.4 MCH 28.7 MCHC 31.7 RDW 14.9 Plt Count 216 MPV 10.1 Immature Gran % (Auto) 0.3 Neut % (Auto) 51.9 Lymph % (Auto) 33.8 [place] % (Auto) 9.2 Eos % (Auto) 4.5 H Baso % (Auto) 0.3 Lymph # (Auto) 2.0 [place] # (Auto) 0.6 Eos # (Auto) 0.3 Baso # (Auto) 0.0 Abs Immat Gran (auto) 0.02 Absolute Neuts (auto) 3.1 Absolute Nucleated RBC 0.000 Nucleated RBC % (auto) 0.0 D-Dimer High Sensitivty VBG pH VBG pCO2 VBG pO2 VBG HCO3 VBG O2 Saturation VBG Base Excess Anion Gap 14 Estim Creat Clear Calc 26.9 Estimated GFR 22 POC Glucose Random Glucose 273 H Calcium 9.6 Magnesium 1.7 Iron TIBC % Saturation Unsat Iron Binding Total Bilirubin 0.2 Direct Bilirubin < 0.2 AST 11 ALT 6 Alkaline Phosphatase 116 Lactate Dehydrogenase Total Creatine Kinase 92 Troponin I High Sens 8.5 B-Natriuretic Peptide 26 Total Protein 7.1 Albumin 4.1 Vitamin B12 Folate Urine Color Urine Appearance Urine pH Ur Specific [place] Urine Protein Urine Glucose (UA) Urine Ketones Urine Blood Urine Nitrite Ur Leukocyte Esterase Urine RBC Urine WBC Ur Squamous Epith Cells Urine Bacteria COVID-19 (LUCY) COVID-19 Clin Com Influenza Type A (JEMAL) Influenza Type B (JEMAL) Influenza A & B Note 10/14/21 10/14/21 10/14/21 22:01 22:01 22:01 MCV MCH MCHC RDW Plt Count MPV Immature Gran % (Auto) Neut % (Auto) Lymph % (Auto) [place] % (Auto) Eos % (Auto) Baso % (Auto) Lymph # (Auto) [place] # (Auto) Eos # (Auto) Baso # (Auto) Abs Immat Gran (auto) Absolute Neuts (auto) Absolute Nucleated RBC Nucleated RBC % (auto) D-Dimer High Sensitivty VBG pH VBG pCO2 VBG pO2 VBG HCO3 VBG O2 Saturation VBG Base Excess Anion Gap Estim Creat Clear Calc Estimated GFR POC Glucose Random Glucose Calcium Magnesium Iron TIBC % Saturation Unsat Iron Binding Total Bilirubin Direct Bilirubin AST ALT Alkaline Phosphatase Lactate Dehydrogenase Total Creatine Kinase Troponin I High Sens B-Natriuretic Peptide Total Protein Albumin Vitamin B12 Folate Urine Color YELLOW Urine Appearance CLEAR Urine pH 6.0 Ur Specific [place] 1.025 Urine Protein 2+ H Urine Glucose (UA) 100 H Urine Ketones NEG Urine Blood TRACE Urine Nitrite NEG Ur Leukocyte Esterase NEG Urine RBC 1-4 Urine WBC 1-4 Ur Squamous Epith Cells 1+ Urine Bacteria 1+ COVID-19 (LUCY) Negative COVID-19 Clin Com See Note Influenza Type A (JEMAL) Negative Influenza Type B (JEMAL) Negative Influenza A & B Note See Note 10/14/21 10/14/21 10/14/21 23:57 23:57 23:59 MCV MCH MCHC RDW Plt Count MPV Immature Gran % (Auto) Neut % (Auto) Lymph % (Auto) [place] % (Auto) Eos % (Auto) Baso % (Auto) Lymph # (Auto) [place] # (Auto) Eos # (Auto) Baso # (Auto) Abs Immat Gran (auto) Absolute Neuts (auto) Absolute Nucleated RBC Nucleated RBC % (auto) D-Dimer High Sensitivty < 150 VBG pH 7.36 VBG pCO2 32 VBG pO2 49 VBG HCO3 18 L VBG O2 Saturation 80.0 VBG Base Excess -5.8 Anion Gap Estim Creat Clear Calc Estimated GFR POC Glucose Random Glucose Calcium Magnesium Iron TIBC % Saturation Unsat Iron Binding Total Bilirubin Direct Bilirubin AST ALT Alkaline Phosphatase Lactate Dehydrogenase Total Creatine Kinase Troponin I High Sens 9.1 B-Natriuretic Peptide Total Protein Albumin Vitamin B12 Folate Urine Color Urine Appearance Urine pH Ur Specific [place] Urine Protein Urine Glucose (UA) Urine Ketones Urine Blood Urine Nitrite Ur Leukocyte Esterase Urine RBC Urine WBC Ur Squamous Epith Cells Urine Bacteria COVID-19 (LUCY) COVID-19 Clin Com Influenza Type A (JEMAL) Influenza Type B (JEMAL) Influenza A & B Note 10/15/21 10/15/21 10/15/21 04:23 04:23 07:05 MCV MCH MCHC RDW Plt Count MPV Immature Gran % (Auto) Neut % (Auto) Lymph % (Auto) [place] % (Auto) Eos % (Auto) Baso % (Auto) Lymph # (Auto) [place] # (Auto) Eos # (Auto) Baso # (Auto) Abs Immat Gran (auto) Absolute Neuts (auto) Absolute Nucleated RBC Nucleated RBC % (auto) D-Dimer High Sensitivty VBG pH VBG pCO2 VBG pO2 VBG HCO3 VBG O2 Saturation VBG Base Excess Anion Gap 14 Estim Creat Clear Calc 35.2 Estimated GFR 29 POC Glucose 250 H Random Glucose 224 H Calcium 10.0 Magnesium Iron 35 TIBC 294 % Saturation 12 L Unsat Iron Binding 259 Total Bilirubin Direct Bilirubin AST ALT Alkaline Phosphatase Lactate Dehydrogenase 162 Total Creatine Kinase Troponin I High Sens B-Natriuretic Peptide Total Protein Albumin Vitamin B12 461 Folate 4.1 Urine Color Urine Appearance Urine pH Ur Specific [place] Urine Protein Urine Glucose (UA) Urine Ketones Urine Blood Urine Nitrite Ur Leukocyte Esterase Urine RBC Urine WBC Ur Squamous Epith Cells Urine Bacteria COVID-19 (LUCY) COVID-19 Clin Com Influenza Type A (JEMAL) Influenza Type B (JEMAL) Influenza A & B Note 10/15/21 11:47 MCV MCH MCHC RDW Plt Count MPV Immature Gran % (Auto) Neut % (Auto) Lymph % (Auto) [place] % (Auto) Eos % (Auto) Baso % (Auto) Lymph # (Auto) [place] # (Auto) Eos # (Auto) Baso # (Auto) Abs Immat Gran (auto) Absolute Neuts (auto) Absolute Nucleated RBC Nucleated RBC % (auto) D-Dimer High Sensitivty VBG pH VBG pCO2 VBG pO2 VBG HCO3 VBG O2 Saturation VBG Base Excess Anion Gap Estim Creat Clear Calc Estimated GFR POC Glucose 214 H Random Glucose Calcium Magnesium Iron TIBC % Saturation Unsat Iron Binding Total Bilirubin Direct Bilirubin AST ALT Alkaline Phosphatase Lactate Dehydrogenase Total Creatine Kinase Troponin I High Sens B-Natriuretic Peptide Total Protein Albumin Vitamin B12 Folate Urine Color Urine Appearance Urine pH Ur Specific [place] Urine Protein Urine Glucose (UA) Urine Ketones Urine Blood Urine Nitrite Ur Leukocyte Esterase Urine RBC Urine WBC Ur Squamous Epith Cells Urine Bacteria COVID-19 (LUCY) COVID-19 Clin Com Influenza Type A (JEMAL) Influenza Type B (JEMAL) Influenza A & B Note Assessment and Plan (1) KATHIE (acute kidney injury): Status: Acute (2) Dyspnea on exertion: Status: Acute (3) Pitting edema: Status: Acute (4) Iron deficiency anemia: Status: Acute (5) Pulmonary nodules: Status: Acute Plan 56-year-old female with a past medical history of hypertension, diabetes presented to the hospital with a chief complaint of shortness of breath. Dyspnea with exertion, wheezing Reports old history of asthma Nebulizations p.r.n. 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 Supportive care KATHIE Unclear baseline but patient reported having normal kidney function Could be nephritic syndrome, and autoimmune problem? Avoid nephrotoxins, hold hydrochlorothiazide Nephrology consult. On IV fluid for now Multiple Pulmonary nodules Largest of 0.6 cm, guidelines to follow-up within 6 months Outpatient PCP follow-up for surveillance CT scans. Iron deficiency anemia Hemoglobin of 9.8 Low iron stores, start p.o. ferrous sulfate History of diabetes Insulin sliding scale. Hold home Lantus for now history of hypertension Continue home amlodipine DVT prophylaxis subcu heparin Patient will need overnight hospital stay to continue evaluation for acute kidney injury and dyspnea on exertion pending Nephrology evaluation given high chance of worsening kidney function. Quality Stroke Does the patient have a stroke diagnosis?: No VTE Prior VTE?: No VTE Risk Level:: Medical - moderate - high VTE Device Contraindication: N/A - Device Ordered VTE Drug Contraindication: Treatment Not Indicated
--- NOTE | 2021-10-15 13:56 | PC.NURSE ---
Ambulated to BR without difficulty. Renal here for eval
[2021-10-15] MEDS: Albuterol/Iprat 2.5/0.5MG 3 ML AMPUL.NEB INHALE ×2 (14:04→20:26)
[2021-10-15 16:44] LABS: Glucose, Whole Blood 180 mg/dL (60-115)
[2021-10-15 19:37] LABS: Glucose, Whole Blood 150 mg/dL (60-115)
--- NOTE | 2021-10-15 22:10 | PC.NURSE ---
patient reports bilateral lower leg pain and swelling after being settled into bed for the evening. patient reports mentioning this to physician earlier. patient has very mild swelling noted to bilateral ankles. patient provided PRN pain medication, will continue to monitor and re-assess in AM
[2021-10-15] MEDS: oxyCODONE HCl Immed Release 5 MG TABLET PO (23:23)
[2021-10-16] VITALS (9 sets, daily range): BP systolic 158–174; BP diastolic 76–98; PULSE 85–99; RESP 12–24; TEMP 36.6–37.1; O2SAT 95–100
[2021-10-16] MEDS: 0.9 % Sodium Chloride Flush 3 ML SYRINGE IVFLUSH ×3 (00:29→21:38)
[2021-10-16] MEDS: Melatonin 3 MG TABLET 6 MG PO ×2 (00:33→23:49)
[2021-10-16] MEDS: Albuterol/Iprat 2.5/0.5MG 3 ML AMPUL.NEB INHALE ×4 (02:37→20:05)
[2021-10-16] MEDS: LORazepam 0.5 MG TABLET PO (03:59)
[2021-10-16] MEDS: 0.9 % Sodium Chloride 1,000 ML 100 ML IVCONT (04:01)
--- NOTE | 2021-10-16 05:17 | PC.NURSE ---
Addendum entered by Dieter Regan RN 10/16/21 06:41: AWAKE..ALERT..ORIENTED X3..AMBULATED TO BR WITH STEADY GAIT...STATED I'M FINE AFTER THAT ATIVAN ...RESTFUL..DENIES/OFFERS NO COMPLAINTS Original Note: CARE ASSUMED 23:15...AWAKE..ALERT..ORIENTED X3....AMBULATED TO BR STEADY GAIT...C/O SOB WITH EXERTION...REQUESTED/RECEIVED PRN UPDRAFT..APPROX 4AM C/O SOB AGAIN BUT DECLINED O2..STATED THAT S HOW MY ANXIETY ATTACKS START ...STATED HAS BEEN TREATED WITH ATIVAN IN PAST...HOSPITALIST UPDATED...ATIVAN 0.5MG PO X1 GIVEN WITH EFFECT...TALKING ON CELL PHONE AFTERWARDS..CURRENTLY DOZING..NO DISTRESS
[2021-10-16 07:15] LABS: Glucose, Whole Blood 210 mg/dL (60-115)
[2021-10-16 07:44] LABS: Hematocrit 27.2 % (37.0-47.0); Hemoglobin 8.6 g/dl (12.0-16.0); Mean Corpuscular HGB Conc 31.6 g/dl (31.0-35.0); Mean Corpuscular Hemoglobin 28.8 pg (27.0-33.0); Mean Platelet Volume 10.4 fL (9.4-12.3); Platelet Count 187 X10*3/uL (160-400); Red Blood Count 2.99 X10*6/uL (4.20-5.50); Red Cell Distribution Width 14.6 % (11.0-16.0); White Blood Count 5.6 X10*3/uL (4.8-10.8)
[2021-10-16] MEDS: Insulin Lispro 100 UNIT/ML 3 ML VIAL SUBCUT ×4 (07:44→21:08)
[2021-10-16] MEDS: cloNIDine HCL 0.1 MG TABLET PO (07:44)
[2021-10-16] MEDS: Ferrous Sulfate 324 MG TABLET.DR PO (07:44)
[2021-10-16] MEDS: amLODIPine Besylate 10 MG TABLET PO (07:44)
[2021-10-16] MEDS: Furosemide 20 MG/2 ML VIAL IVPUSH (07:44)
[2021-10-16] MEDS: Heparin Sodium,Porcine 5,000 UNIT/ML VIAL 5000 UNIT SUBCUT ×3 (07:44→21:38)
[2021-10-16 08:00] LABS: Anion Gap 10 (12-20); Blood Urea Nitrogen 29 mg/dL (9-16); Calcium 9.5 mg/dL (8.4-10.2); Carbon Dioxide 23 mmol/L (22-29); Chloride 111 mmol/L (96-108); Estimated Glomerular Filt Rate 35; Glucose Random 217 mg/dL (60-115); Potassium 4.2 mmol/L (3.3-5.1); Sodium 140 mmol/L (135-145)
[2021-10-16] MEDS: Acetaminophen 325 MG TABLET 650 MG PO ×3 (08:47→22:27)
--- NOTE | 2021-10-16 10:48 | PC.NURSE ---
Pt resting in bedside chair. Fluids discontinued. pt remains SR on tele. audible expiratory wheeze heard in bilateral lungs.pt c/o headache. PRN tylenol given with + effect. pt is a standby assist to the bathroom. Pt states that at times she feels dizzy and would like someone with her to talk to the bathroom. pt uses callbell appropriately. Belongings and callbell within reach.
[2021-10-16 11:44] LABS: Glucose, Whole Blood 182 mg/dL (60-115)
--- NOTE | 2021-10-16 11:54 | P.PNIM_ITS ---
Subjective Subjective Date of Service: 10/16/21 Interval History: the patient was seen and evaluated this morning report improvement in her shortness of breath and wheezing Reported edema in lower extremities No reported other overnight events. Systemic review: No fever, chills or weakness No chest pain, palpitation but has edema in her lower extremities Reporting dyspnea with exertion with wheezing No abdominal pain, nausea or vomiting No urinary symptoms No any rash or wounds Physical Exam Vital Signs: Vital Signs: Last Vital Signs Temp 98.5 F 10/16/21 11:27 Pulse 87 10/16/21 11:27 Resp 13 10/16/21 11:27 BP 160/76 H 10/16/21 11:27 Pulse Ox 100 10/16/21 11:27 BMI result Body Mass Index 33.8 Const: Other: Constitutional : Alert, oriented, not in distress Neck : Normal inspection, Supple Cardiovascular : RRR, no JVP, +1 bilateral lower extremity edema Respiratory : fair bilateral air entry, no crackles, scattered bilateral wheezes Gastrointestinal: soft, lax, Normal bowel sounds, Non tender Skin : Warm, Dry Neurological : Alert & oriented x3, No focal deficit , CN 2-12 within normal Objective Data Active Medications Acetaminophen (Acetaminophen 325 Mg Tablet) 650 mg PO Q6H PRN PRN Reason: Pain, Mild (Pain Scale 1-3) Last Admin: 10/16/21 08:47 Dose: 650 mg Documented by: ERAN Albuterol/Ipratropium (Albuterol/Iprat 2.5/0.5mg 3 Ml Ampul.Neb) 3 ml INHALE RQ4H PRN PRN Reason: Shortness of Breath/Wheezing Last Admin: 10/16/21 02:37 Dose: 3 ml Documented by: GERMAN Albuterol/Ipratropium (Albuterol/Iprat 2.5/0.5mg 3 Ml Ampul.Neb) 3 ml INHALE RQ6H WHILE AWAKE [facility] Last Admin: 10/16/21 08:07 Dose: 3 ml Documented by: PATRICK Amlodipine Besylate (Amlodipine Besylate 10 Mg Tablet) 10 mg PO DAILY [facility]; Protocol Last Admin: 10/16/21 07:44 Dose: 10 mg Documented by: ERAN Benzonatate (Benzonatate 100 Mg Capsule) 100 mg PO TID PRN PRN Reason: Cough Clonidine HCl (Clonidine Hcl 0.1 Mg Tablet) 0.1 mg PO DAILY [facility]; Protocol Last Admin: 10/16/21 07:44 Dose: 0.1 mg Documented by: ERAN Dextrose (Dextrose 50 % 25 Gm/50 Ml Syringe) 25 gm IVPUSH Q15M PRN; Protocol PRN Reason: per Hypoglycemia Standing Ord. Ferrous Sulfate (Ferrous Sulfate 324 Mg Tablet.Dr) 324 mg PO DAILY [facility] Last Admin: 10/16/21 07:44 Dose: 324 mg Documented by: ERAN Furosemide (Furosemide 20 Mg/2 Ml Vial) 20 mg IVPUSH DAILY@0800 [facility]; Protocol Last Admin: 10/16/21 07:44 Dose: 20 mg Documented by: ERAN Glucose (Glucose Gel 15 Gm Gel..Gram.) 15 gm PO Q15M PRN; Protocol PRN Reason: per Hypoglycemia Standing Ord. Heparin Sodium (Porcine) (Heparin Sodium,Porcine 5,000 Unit/Ml Vial) 5,000 unit SUBCUT Q8H [facility] Last Admin: 10/16/21 07:44 Dose: 5,000 unit Documented by: ERAN Insulin Human Lispro (Insulin Lispro 100 Unit/Ml 3 Ml Vial) 0 unit SUBCUT QIDACHS [facility]; Protocol Last Admin: 10/16/21 07:44 Dose: 4 unit Documented by: ERAN Melatonin (Melatonin 3 Mg Tablet) 6 mg PO BEDTIME PRN PRN Reason: Insomnia Last Admin: 10/16/21 00:33 Dose: 6 mg Documented by: LOBITO Pharmacy Consult (Consult Rx Perform Med Rec) 1 each MISCELLANE ONCE PRN PRN Reason: Consult order Senna (Sennosides 8.6 Mg Tablet) 17.2 mg PO BEDTIME PRN PRN Reason: Constipation Sodium Chloride (0.9 % Sodium Chloride Flush 3 Ml Syringe) 3 ml IVFLUSH QSHIFT [facility] Last Admin: 10/16/21 07:53 Dose: Not Given Documented by: ERAN Non-Admin Reason: IV Running Labs CBC & Chem 7: 10/16/21 07:33 10/16/21 07:33 Labs: Laboratory Results - last 24 hr 10/15/21 10/15/21 10/15/21 04:23 04:23 16:41 MCV MCH MCHC RDW Plt Count MPV Absolute Nucleated RBC Nucleated RBC % (auto) Anion Gap Estim Creat Clear Calc Estimated GFR POC Glucose 180 H Random Glucose Calcium Iron 35 TIBC 294 % Saturation 12 L Unsat Iron Binding 259 Vitamin B12 461 Folate 4.1 10/15/21 10/16/21 10/16/21 19:33 07:08 07:33 MCV 91.0 MCH 28.8 MCHC 31.6 RDW 14.6 Plt Count 187 MPV 10.4 Absolute Nucleated RBC 0.000 Nucleated RBC % (auto) 0.0 Anion Gap Estim Creat Clear Calc Estimated GFR POC Glucose 150 H 210 H Random Glucose Calcium Iron TIBC % Saturation Unsat Iron Binding Vitamin B12 Folate 10/16/21 10/16/21 07:33 11:31 MCV MCH MCHC RDW Plt Count MPV Absolute Nucleated RBC Nucleated RBC % (auto) Anion Gap 10 L Estim Creat Clear Calc 41.0 Estimated GFR 35 POC Glucose 182 H Random Glucose 217 H Calcium 9.5 Iron TIBC % Saturation Unsat Iron Binding Vitamin B12 Folate Assessment and Plan (1) Pulmonary nodules: Status: Acute (2) Iron deficiency anemia: Status: Acute (3) Pitting edema: Status: Acute (4) Dyspnea on exertion: Status: Acute (5) KATHIE (acute kidney injury): Status: Acute Plan 56-year-old female with a past medical history of hypertension, diabetes presented to the hospital with a chief complaint of shortness of breath. Dyspnea with exertion, wheezing Reports old history of asthma Nebulizations p.r.n. 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 Seems to be secondary to kidney protein loss rather than heart failure Supportive care KATHIE Creatinine improving to 1.5, BUN remained around 30 Unclear baseline but patient reported having normal kidney function, waiting old lab work by her daughter Could be nephritic syndrome, and autoimmune problem? Avoid nephrotoxins, hold hydrochlorothiazide Nephrology consult. [facility] Multiple Pulmonary nodules Largest of 0.6 cm, guidelines to follow-up within 6 months Outpatient PCP follow-up for surveillance CT scans. Iron deficiency anemia Seems to be more chronic than acute with no obvious blood loss Waiting previous blood work Hemoglobin dropped to 8.6, likely from dilution Low iron stores, start p.o. ferrous sulfate History of diabetes Insulin sliding scale. Hold home Lantus for now history of hypertension Continue home amlodipine DVT prophylaxis subcu heparin Patient will need overnight hospital stay to continue evaluation for acute kidney injury and dyspnea on exertion given high chance of worsening kidney function. Quality Stroke Does the patient have a stroke diagnosis?: No VTE Prior VTE?: No VTE Risk Level:: Medical - moderate - high VTE Device Contraindication: N/A - Device Ordered VTE Drug Contraindication: Treatment Not Indicated
--- NOTE | 2021-10-16 12:14 | PC.NURSE ---
pt a&ox3, vss, pt ambulated independently to bathroom, requesting mikayla redd, compliance monitor reconnected. pt requesting shower after lunch.
[2021-10-16 12:15] LABS: Phosphorus 3.8 mg/dL (2.7-4.5)
[2021-10-16 13:31] LABS: Glucose, Whole Blood 160 mg/dL (60-115)
--- NOTE | 2021-10-16 13:51 | MHC.CDI.CONC ---
CDI Concurrent Query Documentation Clarification: PHYSICIAN'S DOCUMENTATION REQUEST Date of Query: 10/16/21 135 Patient Name: Yeimy Nicolas Admit Date: 10/14/21 Dear Doctor, Please review the following and provide your response in the progress notes. Clinical Indicators: The diagnosis of asthma was documented in the record on 10/15/21. Additional clinical indicators from the record include: Risk Factors/Clinical Indicators/Treatments PMH of Asthma Per MD progress note 10/15/21: Reporting dyspnea with exertion with wheezing Treated with DuoNeb Based on the above, please clarify in the Progress Notes further specificity regarding the type and acuity of the asthma: Type: Mild intermittent - less than 2x/week Mild persistent - more than 2x/week but not daily Moderate persistent - daily and may restrict physical activity Severe persistent - throughout the day with frequent attacks, limiting activities Exercise induced Other ? please specify Unable to determine Acuity: With acute exacerbation With status asthmaticus Uncomplicated Unable to determine Use of terms such as suspected, likely, concern for, or probable (associated with a specific diagnosis that is being evaluated, monitored, or treated as if it exists) are acceptable and can be coded in the inpatient setting, when documented at the time of discharge. Thank you, Susanne Tsang RN Extension: [phone] Please use your independent medical judgment in providing your response. THIS QUERY IS PART OF THE PERMANENT MEDICAL RECORD Provider Response: Other Other Diagnosis: mild intermittent asthma
--- NOTE | 2021-10-16 13:51 | P.CDIC_ITS ---
CDI Concurrent Query Documentation Clarification: PHYSICIAN'S DOCUMENTATION REQUEST Date of Query: 10/16/21 1350 Patient Name: Yeimy Nicolas Admit Date: 10/14/21 Dear Doctor, Please review the following and provide your response in the progress notes. Clinical Indicators: The diagnosis of asthma was documented in the record on 10/15/21. Additional clinical indicators from the record include: Risk Factors/Clinical Indicators/Treatments PMH of Asthma Per MD progress note 10/15/21: Reporting dyspnea with exertion with wheezing Treated with DuoNeb Based on the above, please clarify in the Progress Notes further specificity regarding the type and acuity of the asthma: Type: * Mild intermittent - less than 2x/week * Mild persistent - more than 2x/week but not daily * Moderate persistent - daily and may restrict physical activity * Severe persistent - throughout the day with frequent attacks, limiting activities * Exercise induced * Other ? please specify * Unable to determine Acuity: * With acute exacerbation * With status asthmaticus * Uncomplicated * Unable to determine Use of terms such as suspected, likely, concern for, or probable (associated with a specific diagnosis that is being evaluated, monitored, or treated as if it exists) are acceptable and can be coded in the inpatient setting, when documented at the time of discharge. Thank you, Susanne Tsang RN Extension: [phone] Please use your independent medical judgment in providing your response. THIS QUERY IS PART OF THE PERMANENT MEDICAL RECORD Provider Response: Other Other Diagnosis: mild intermittent asthma
--- NOTE | 2021-10-16 14:15 | P.PNNP_ITS ---
Subjective Subjective Date of Service: 10/16/21 Interval history: Chart Reviewed. Events noted. Physical Exam Vital Signs: Vital Signs: Last Vital Signs Temp 98.5 F 10/16/21 11:27 Pulse 91 10/16/21 14:04 Resp 24 H 10/16/21 14:04 BP 160/76 H 10/16/21 11:27 Pulse Ox 100 10/16/21 11:27 BMI result Body Mass Index 33.8 Const: General: cooperative, comfortable and no acute distress O rientation/consciousness: patient oriented x3 HEENT: Head: Yes normocephalic and Yes atraumatic Neck: Neck: Yes no JVD Resp: Effort & Inspection: normal respiratory effort Auscultation: clear to auscultation bilaterally Cardio: Jugular venous distension: no JVD Rate: regular rate Rhythm: re gular rhythm Heart sounds: S1 normal heart sound present and S2 normal heart sound present GI: Auscultation: normal bowel sounds Neuro: General: patient oriented x3 and no focal motor deficits Extrem: General: Yes edema Objective Data Labs CBC & Chem 7: 10/16/21 07:33 10/16/21 07:33 Labs: Laboratory Results - last 24 hr 10/15/21 10/15/21 10/16/21 16:41 19:33 07:08 WBC RBC Hgb Hct MCV MCH MCHC RDW Plt Count MPV Absolute Nucleated RBC Nucleated RBC % (auto) Sodium Potassium Chloride Carbon Dioxide Anion Gap BUN Creatinine Estim Creat Clear Calc Estimated GFR POC Glucose 180 H 150 H 210 H Random Glucose Calcium Phosphorus 10/16/21 10/16/21 10/16/21 07:33 07:33 11:31 WBC 5.6 RBC 2.99 L Hgb 8.6 L Hct 27.2 L MCV 91.0 MCH 28.8 MCHC 31.6 RDW 14.6 Plt Count 187 MPV 10.4 Absolute Nucleated RBC 0.000 Nucleated RBC % (auto) 0.0 Sodium 140 Potassium 4.2 Chloride 111 H Carbon Dioxide 23 Anion Gap 10 L BUN 29 H Creatinine 1.54 H Estim Creat Clear Calc 41.0 Estimated GFR 35 POC Glucose 182 H Random Glucose 217 H Calcium 9.5 Phosphorus 3.8 10/16/21 13:27 WBC RBC Hgb Hct MCV MCH MCHC RDW Plt Count MPV Absolute Nucleated RBC Nucleated RBC % (auto) Sodium Potassium Chloride Carbon Dioxide Anion Gap BUN Creatinine Estim Creat Clear Calc Estimated GFR POC Glucose 160 H Random Glucose Calcium Phosphorus Procedures Date of Service Date of Service: 10/16/21 Assessment & Plan Assessment and plan (1) KATHIE (acute kidney injury): Status: Acute Plan Problem List: KATHIE Edema proteinuria anemia Plan: #) KATHIE, non-oliguric Noted glucosuria on UA which could indicate low volume state from osmotic diuresis further exacerbated with home thiazide diuretic. BS control per primary team. KATHIE- resolving 2+ protein. will add macr and tpcr. albumin ok. CT abd/pelvis results noted. no hydronephrosis or calculi seen Monitor I/O's avoidance of nsaids, acei/arb, thiazide diuretics, IV contrast, renal dosing abx. #)Anemia: Anemia with TSAT = 12%. Suggest 250 mg IV iron x 2 doses ANTHONY x 1 dose added(SQ) #) CKD-MBD: Add vitD level, PTH - pending Time Spent With Patient Time: Total time spent is greater than 50% in coordination of care (as documented) at patient's floor/unit and/or counseling patient: Progress Note: Quality Stroke Does the patient have a stroke diagnosis?: No
--- NOTE | 2021-10-16 15:13 | PC.NURSE ---
pharmacy contacted - epoetin haider not in pyxis.
--- NOTE | 2021-10-16 15:43 | PC.NURSE ---
medicated per provider order. family at bedside. pt requesting to speak with provider - would like to transfer to [facility]. provider notified.
--- NOTE | 2021-10-16 16:59 | PC.NURSE ---
contacted pharmacy re medications not in pyxis.
--- NOTE | 2021-10-16 17:08 | PC.NURSE ---
medicated per provider order, pt a&ox3, vss, pt c/o 11/15 headache. pt continues to have pedal/lower extremity edema - more in left leg. IV patent.
[2021-10-16] MEDS: Sodium Ferric Gluconat/Sucrose 125 MG in 0.9 % Sodium Chloride 100 ML 100 MG IV (17:26)
--- NOTE | 2021-10-16 17:29 | PC.NURSE ---
IV sodium ferric gluconat 125mg brought up from pharmacy. started @ 100mL/hr per provider order.
[2021-10-16 17:33] LABS: Creatinine Urine 55.46 mg/dL; Microalbum/Creatinine Ratio Ur 809.5 ug/mg cr; Total Protein Urine Random 61 mg/dL (<12)
[2021-10-16 18:09] LABS: Glucose, Whole Blood 216 mg/dL (60-115)
--- NOTE | 2021-10-16 19:04 | PC.NURSE ---
pt requesting shower, tech assissting pt to shower.
--- NOTE | 2021-10-16 20:05 | PC.NURSE ---
pt showered, requesting resp treatment, resp notified.
--- NOTE | 2021-10-16 20:45 | PC.NURSE ---
RN-RN report given.
--- NOTE | 2021-10-16 20:45 | PC.NURSE ---
pt c/o increased pain/headache, requesting more tylenol. tylenol not due to be given, provider notified.
[2021-10-16 21:07] LABS: Glucose, Whole Blood 168 mg/dL (60-115)
--- NOTE | 2021-10-16 21:10 | PC.NURSE ---
medicated w insulin per sliding scale protocol, pt c/o 01/15 headache, provider notified.
[2021-10-17] VITALS (10 sets, daily range): BP systolic 141–177; BP diastolic 79–98; PULSE 90–101; RESP 18–20; TEMP 36.1–37.3; O2SAT 96–98
[2021-10-17] MEDS: LORazepam 0.5 MG TABLET PO ×2 (00:36→20:14)
[2021-10-17] MEDS: Albuterol/Iprat 2.5/0.5MG 3 ML AMPUL.NEB INHALE ×4 (03:20→19:01)
[2021-10-17 06:25] LABS: Hematocrit 28.4 % (37.0-47.0); Mean Corpuscular HGB Conc 31.7 g/dl (31.0-35.0); Mean Corpuscular Hemoglobin 28.6 pg (27.0-33.0); Mean Corpuscular Volume 90.2 fL (80.0-98.0); Mean Platelet Volume 10.9 fL (9.4-12.3); Platelet Count 210 X10*3/uL (160-400); Red Blood Count 3.15 X10*6/uL (4.20-5.50); Red Cell Distribution Width 14.8 % (11.0-16.0); White Blood Count 6.5 X10*3/uL (4.8-10.8)
[2021-10-17 06:43] LABS: Anion Gap 13 (12-20); Blood Urea Nitrogen 28 mg/dL (9-16); Calcium 9.6 mg/dL (8.4-10.2); Carbon Dioxide 22 mmol/L (22-29); Chloride 105 mmol/L (96-108); Creatinine Clr Calc Pharmacy 44.4; Estimated Glomerular Filt Rate 38; Glucose Random 242 mg/dL (60-115); Potassium 3.7 mmol/L (3.3-5.1); Sodium 136 mmol/L (135-145)
[2021-10-17 07:15] LABS: Glucose, Whole Blood 179 mg/dL (60-115)
[2021-10-17] MEDS: 0.9 % Sodium Chloride Flush 3 ML SYRINGE IVFLUSH ×3 (09:08→20:14)
[2021-10-17] MEDS: Insulin Lispro 100 UNIT/ML 3 ML VIAL SUBCUT ×3 (09:08→20:14)
[2021-10-17] MEDS: cloNIDine HCL 0.1 MG TABLET PO (09:08)
[2021-10-17] MEDS: Ferrous Sulfate 324 MG TABLET.DR PO (09:08)
[2021-10-17] MEDS: Furosemide 20 MG/2 ML VIAL 40 MG IVPUSH (09:09)
[2021-10-17] MEDS: Heparin Sodium,Porcine 5,000 UNIT/ML VIAL 5000 UNIT SUBCUT (09:09)
[2021-10-17] MEDS: amLODIPine Besylate 10 MG TABLET PO (09:09)
[2021-10-17] MEDS: Sodium Ferric Gluconat/Sucrose 125 MG in 0.9 % Sodium Chloride 100 ML 110 MG IV (09:26)
[2021-10-17 11:22] LABS: Glucose, Whole Blood 241 mg/dL (60-115)
[2021-10-17 14:46] LABS: Calcium (PTHI) 9.2 mg/dL (8.6-10.4); PTHI 131 pg/mL (16-77)
--- NOTE | 2021-10-17 14:48 | P.PNIM_ITS ---
Subjective Subjective Date of Service: 10/17/21 Interval History: seen and examined this morning follow up for shortness of breath, kathie reporting wheezing this morning however none on exam; EDUARDO no chest pain Review of Systems Review of Systems: Yes all other systems are reviewed and are negative Constitutional Constitutional: Denies chills and Denies fever(s) Cardiovascular Cardiovascular: Denies chest pain, Denies palpitations and Reports dyspnea on exertion Respiratory Respiratory: Denies cough and Reports dyspnea on exertion Endocrine Endocrine: Denies palpitations Physical Exam Vital Signs: Vital Signs: Last Vital Signs Temp 98.2 F 10/17/21 11:07 Pulse 95 10/17/21 11:07 Resp 18 10/17/21 11:07 BP 141/89 H 10/17/21 11:07 Pulse Ox 98 10/17/21 11:07 BMI result Body Mass Index 33.8 Const: General: cooperative, comfortable, alert and awake Nutritional Appearance: overweight Orientation/consciousness: patient oriented x3 Resp: Effort & Inspection: normal respiratory effort and able to speak in complete sentences Auscultation: no wheezes Cardio: Rate: regular rate Heart sounds: S1 normal heart sound present Neuro: General: patient oriented x3 Extrem: Other: 1+ edema Objective Data Active Medications Acetaminophen (Acetaminophen 325 Mg Tablet) 650 mg PO Q6H PRN PRN Reason: Pain, Mild (Pain Scale 1-3) Last Admin: 10/16/21 22:27 Dose: 650 mg Documented by: DEXTER Albuterol/Ipratropium (Albuterol/Iprat 2.5/0.5mg 3 Ml Ampul.Neb) 3 ml INHALE RQ4H PRN PRN Reason: Shortness of Breath/Wheezing Last Admin: 10/17/21 03:20 Dose: 3 ml Documented by: MARILEE Albuterol/Ipratropium (Albuterol/Iprat 2.5/0.5mg 3 Ml Ampul.Neb) 3 ml INHALE RQ6H WHILE AWAKE [facility] Last Admin: 10/17/21 07:38 Dose: 3 ml Documented by: PATRICK Amlodipine Besylate (Amlodipine Besylate 10 Mg Tablet) 10 mg PO DAILY [facility]; Protocol Last Admin: 10/17/21 09:09 Dose: 10 mg Documented by: AFSANEH Benzonatate (Benzonatate 100 Mg Capsule) 100 mg PO TID PRN PRN Reason: Cough Clonidine HCl (Clonidine Hcl 0.1 Mg Tablet) 0.1 mg PO DAILY [facility]; Protocol Last Admin: 10/17/21 09:08 Dose: 0.1 mg Documented by: AFSANEH Dextrose (Dextrose 50 % 25 Gm/50 Ml Syringe) 25 gm IVPUSH Q15M PRN; Protocol PRN Reason: per Hypoglycemia Standing Ord. Ferrous Sulfate (Ferrous Sulfate 324 Mg Tablet.Dr) 324 mg PO DAILY [facility] Last Admin: 10/17/21 09:08 Dose: 324 mg Documented by: AFSANEH Furosemide (Furosemide 20 Mg/2 Ml Vial) 40 mg IVPUSH DAILY@0800 [facility]; Protocol Last Admin: 10/17/21 09:09 Dose: 40 mg Documented by: AFSANEH Glucose (Glucose Gel 15 Gm Gel..Gram.) 15 gm PO Q15M PRN; Protocol PRN Reason: per Hypoglycemia Standing Ord. Heparin Sodium (Porcine) (Heparin Sodium,Porcine 5,000 Unit/Ml Vial) 5,000 unit SUBCUT Q8H [facility] Last Admin: 10/17/21 09:09 Dose: 5,000 unit Documented by: AFSANEH Ferric Sodium Gluconate Complex 125 mg/ Sodium Chloride 110 mls @ 100 mls/hr IV DAILY [facility] Stop: 10/18/21 10:05 Last Infusion: 10/17/21 10:37 Dose: 0 mls/hr Documented by: AFSANEH Insulin Human Lispro (Insulin Lispro 100 Unit/Ml 3 Ml Vial) 0 unit SUBCUT QIDACHS [facility]; Protocol Last Admin: 10/17/21 12:10 Dose: 4 unit Documented by: PATRICIA Melatonin (Melatonin 3 Mg Tablet) 6 mg PO BEDTIME PRN PRN Reason: Insomnia Last Admin: 10/16/21 23:49 Dose: 6 mg Documented by: ANTOIC Pharmacy Consult (Consult Rx Perform Med Rec) 1 each MISCELLANE ONCE PRN PRN Reason: Consult order Senna (Sennosides 8.6 Mg Tablet) 17.2 mg PO BEDTIME PRN PRN Reason: Constipation Sodium Chloride (0.9 % Sodium Chloride Flush 3 Ml Syringe) 3 ml IVFLUSH QSHIFT [facility] Last Admin: 10/17/21 09:08 Dose: 3 ml Documented by: AFSANEH Labs CBC & Chem 7: 10/17/21 05:57 10/17/21 05:57 Labs: Laboratory Results - last 24 hr 10/16/21 10/16/21 10/16/21 07:33 17:03 18:04 MCV MCH MCHC RDW Plt Count MPV Absolute Nucleated RBC Nucleated RBC % (auto) Anion Gap Estim Creat Clear Calc Estimated GFR POC Glucose 216 H Random Glucose Calcium PTH Intact 131 H Calcium (PTH Intact) 9.2 U Random Total Protein 61 H Urine Creatinine 55.46 Urine Microalbumin 449.0 Microalb/Creat Ratio 809.5 10/16/21 10/17/21 10/17/21 21:04 05:57 05:57 MCV 90.2 MCH 28.6 MCHC 31.7 RDW 14.8 Plt Count 210 MPV 10.9 Absolute Nucleated RBC 0.000 Nucleated RBC % (auto) 0.0 Anion Gap 13 Estim Creat Clear Calc 44.4 Estimated GFR 38 POC Glucose 168 H Random Glucose 242 H Calcium 9.6 PTH Intact Calcium (PTH Intact) U Random Total Protein Urine Creatinine Urine Microalbumin Microalb/Creat Ratio 10/17/21 10/17/21 06:59 11:08 MCV MCH MCHC RDW Plt Count MPV Absolute Nucleated RBC Nucleated RBC % (auto) Anion Gap Estim Creat Clear Calc Estimated GFR POC Glucose 179 H 241 H Random Glucose Calcium PTH Intact Calcium (PTH Intact) U Random Total Protein Urine Creatinine Urine Microalbumin Microalb/Creat Ratio Assessment and Plan (1) Shortness of breath: Status: Acute (2) Iron deficiency anemia: Status: Acute Plan 56-year-old female with a past medical history of hypertension, diabetes presented to the hospital with a chief complaint of shortness of breath. Dyspnea with exertion, wheezing Reports old history of asthma, no wheezing on exam at this time Nebulizations p.r.n. Echo showed EF of 60 65% with severe LVH and impaired relaxation filling pattern although BNP negative ?component of diastolic heart failure cardiology evaluation continue IV lasix consider chest CT if no improvement leg edema May be multifactorial Has proteinurea, likely from protein loss Negative venous duplex as well. KATHIE Creatinine improving to 1.42, BUN remained around 30 Unclear baseline but patient reported having normal kidney function, waiting old lab work by her daughter Avoid nephrotoxins, hold hydrochlorothiazide Nephrology following Pending vitamin-D and PTH levels Multiple Pulmonary nodules Largest of 0.6 cm, guidelines to follow-up within 6 months Outpatient PCP follow-up for surveillance CT scans. Iron deficiency anemia Seems to be more chronic than acute with no obvious blood loss Waiting previous blood work Hemoglobin dropped to 8.6, likely from dilution Low iron stores, IV iron ordered History of diabetes Insulin sliding scale. Hold home Lantus for now history of hypertension Continue home amlodipine DVT prophylaxis subcu heparin Attending: dr. osuna Requires ongoing hospitalization for acute kidney injury and dyspnea on exertion given high chance of worsening kidney function. Quality Stroke Does the patient have a stroke diagnosis?: No VTE Prior VTE?: No VTE Risk Level:: Medical - moderate - high VTE Device Contraindication: N/A - Device Ordered VTE Drug Contraindication: Treatment Not Indicated
--- NOTE | 2021-10-17 15:23 | PM.PNNEP ---
Subjective Subjective Date of Service: 10/17/21 Interval history: seen and examined this morning follow up for shortness of breath, kathie reporting wheezing this morning however none on exam; EDUARDO no chest pain Physical Exam Vital Signs: Vital Signs: Last Vital Signs Temp 97.0 F 10/17/21 15:00 Pulse 91 10/17/21 15:00 Resp 20 10/17/21 15:00 BP 177/94 H 10/17/21 15:00 Pulse Ox 98 10/17/21 15:00 BMI result Body Mass Index 33.8 Const: Orientation/consciousness: patient oriented x3 HEENT: Head: Yes normal to inspection, Yes normocephalic and Yes atraumatic Neck: Neck: Yes no JVD Resp: Effort & Inspection: normal respiratory effort Auscultation: clear to auscultation bilaterally Cardio: Jugular venous distension: no JVD Rate: regular rate Rhythm: regular rhythm Heart sounds: S1 normal heart sound present and S2 normal heart sound present Neuro: General: patient oriented x3 Extrem: Right upper extremity: edema (2+ pitting edema B/L) Objective Data Labs CBC & Chem 7: 10/17/21 05:57 10/17/21 05:57 Labs: Laboratory Results - last 24 hr 10/16/21 10/16/21 10/16/21 07:33 17:03 18:04 WBC RBC Hgb Hct MCV MCH MCHC RDW Plt Count MPV Absolute Nucleated RBC Nucleated RBC % (auto) Sodium Potassium Chloride Carbon Dioxide Anion Gap BUN Creatinine Estim Creat Clear Calc Estimated GFR POC Glucose 216 H Random Glucose Calcium PTH Intact 131 H Calcium (PTH Intact) 9.2 U Random Total Protein 61 H Urine Creatinine 55.46 Urine Microalbumin 449.0 Microalb/Creat Ratio 809.5 10/16/21 10/17/21 10/17/21 21:04 05:57 05:57 WBC 6.5 RBC 3.15 L Hgb 9.0 L Hct 28.4 L MCV 90.2 MCH 28.6 MCHC 31.7 RDW 14.8 Plt Count 210 MPV 10.9 Absolute Nucleated RBC 0.000 Nucleated RBC % (auto) 0.0 Sodium 136 Potassium 3.7 Chloride 105 Carbon Dioxide 22 Anion Gap 13 BUN 28 H Creatinine 1.42 H Estim Creat Clear Calc 44.4 Estimated GFR 38 POC Glucose 168 H Random Glucose 242 H Calcium 9.6 PTH Intact Calcium (PTH Intact) U Random Total Protein Urine Creatinine Urine Microalbumin Microalb/Creat Ratio 10/17/21 10/17/21 06:59 11:08 WBC RBC Hgb Hct MCV MCH MCHC RDW Plt Count MPV Absolute Nucleated RBC Nucleated RBC % (auto) Sodium Potassium Chloride Carbon Dioxide Anion Gap BUN Creatinine Estim Creat Clear Calc Estimated GFR POC Glucose 179 H 241 H Random Glucose Calcium PTH Intact Calcium (PTH Intact) U Random Total Protein Urine Creatinine Urine Microalbumin Microalb/Creat Ratio Procedures Date of Service Date of Service: 10/17/21 Assessment & Plan Assessment and plan (1) KATHIE (acute kidney injury): Status: Acute (2) Pitting edema: Status: Acute Plan Problem List: KATHIE Edema proteinuria anemia Plan: #) KATHIE, non-oliguric Noted glucosuria on UA which could indicate low volume state from osmotic diuresis further exacerbated with home thiazide diuretic. BS control per primary team. KATHIE- resolving 2+ protein. will add macr and tpcr. albumin ok. CT abd/pelvis results noted. no hydronephrosis or calculi seen Monitor I/O's -Once BL S-Cr established, she would benefit from addition of ARB and SGLT2 inhibitor for renal protective benefit. -Given her hypertension, edema, ckd, and proteinuria, will add 25 mg spironolactone daily to current regimen. #)Anemia: Anemia with TSAT = 12%. Suggest 250 mg IV iron x 2 doses ANTHONY x 1 dose already given #) CKD-MBD: Add vitD level, PTH - pending Time Spent With Patient Time: Total time spent is greater than 50% in coordination of care (as documented) at patient's floor/unit and/or counseling patient: Progress Note: Quality Stroke Does the patient have a stroke diagnosis?: No
[2021-10-17 15:54] LABS: Glucose, Whole Blood 129 mg/dL (60-115)
[2021-10-17] MEDS: Spironolactone 25 MG TABLET PO (17:46)
[2021-10-17 19:31] LABS: Glucose, Whole Blood 221 mg/dL (60-115)
[2021-10-17] MEDS: Acetaminophen 325 MG TABLET 650 MG PO (23:58)
[2021-10-18] MEDS: Heparin Sodium,Porcine 5,000 UNIT/ML VIAL 5000 UNIT SUBCUT ×2 (00:52→08:14)
[2021-10-18 03:48] VITALS: BP 184/81; PULSE 103; RESP 18; TEMP 36.5; O2SAT 97
[2021-10-18 04:01] VITALS: BP 154/89
[2021-10-18 07:18] LABS: Glucose, Whole Blood 187 mg/dL (60-115)
[2021-10-18 07:21] VITALS: BP 180/98; PULSE 85; RESP 23; TEMP 36.7; O2SAT 99
[2021-10-18 07:31] VITALS: PULSE 88; RESP 18; O2SAT 99
[2021-10-18] MEDS: Albuterol/Iprat 2.5/0.5MG 3 ML AMPUL.NEB INHALE ×2 (07:31→13:35)
[2021-10-18] MEDS: Insulin Lispro 100 UNIT/ML 3 ML VIAL SUBCUT ×2 (08:13→11:25)
[2021-10-18] MEDS: Furosemide 20 MG/2 ML VIAL 40 MG IVPUSH (08:14)
[2021-10-18] MEDS: Spironolactone 25 MG TABLET PO (08:14)
[2021-10-18] MEDS: 0.9 % Sodium Chloride Flush 3 ML SYRINGE IVFLUSH (08:14)
[2021-10-18] MEDS: cloNIDine HCL 0.1 MG TABLET PO (08:14)
[2021-10-18] MEDS: Ferrous Sulfate 324 MG TABLET.DR PO (08:15)
[2021-10-18] MEDS: amLODIPine Besylate 10 MG TABLET PO (08:15)
[2021-10-18] MEDS: Sodium Ferric Gluconat/Sucrose 125 MG in 0.9 % Sodium Chloride 100 ML 100 MG IV (08:39)
[2021-10-18 09:08] LABS: Anion Gap 17 (12-20); Blood Urea Nitrogen 35 mg/dL (9-16); Calcium 10.2 mg/dL (8.4-10.2); Carbon Dioxide 21 mmol/L (22-29); Chloride 104 mmol/L (96-108); Creatinine Clr Calc Pharmacy 37.5; Estimated Glomerular Filt Rate 32; Glucose Random 231 mg/dL (60-115); Potassium 4.2 mmol/L (3.3-5.1); Sodium 138 mmol/L (135-145)
[2021-10-18 11:16] LABS: Glucose, Whole Blood 242 mg/dL (60-115)
--- NOTE | 2021-10-18 12:13 | P.DS_ITS ---
DS: Providers Provider Date of Service: 10/18/21 Date of admission: 10/14/21 23:25 Date of discharge: 10/18/21 Primary care physician: Rohit Tovar MD Admitting clinician: Oliver Reynoso Attending physician on admission: Paris Rosen Consults: 10/14/21 23:28 Consult to Nephrology Routine Consulting Provider: Dorian An Reason for consultation: kathie 10/17/21 14:04 Consult to Cardiology Routine Consulting Provider: Lex Campos Reason for consultation: edema ?chf Has provider been notified: No DS: Diagnosis Discharge Diagnosis (1) KATHIE (acute kidney injury): Status: Acute (2) Pitting edema: Status: Acute DS: Summary Hospital Course Hospital Course: From H&P on day of admission ?56-year-old female with a past medical history of hypertension, diabetes presented to the hospital with a chief complaint of shortness of breath.? Patient reports that over the past 4 days she has been having shortness of breath which has been gradually worsening; worse on exertion.? Also complains of occasional orthopnea.? Denies any chest pain.? Mentions that she has been having wheezing.? Denies any fever chills cough or sputum production.? Denies any palpitations, lightheadedness or dizziness.? Patient also mentioned that all past couple days she noted significant swelling in her legs.? Reported decreased energy levels.? Mentioned that she has been complaint with her home medications.? Denies any GI symptoms.? Review of all other systems is negative except mentioned above ER course: Per ER team patient noted to have mild pedal edema; chest x-ray showed no acute findings; CT scan showed pulmonary nodules; on labs noted to have KATHIE.? Admitted to the hospital for further management.? EKG was nonischemic.? Troponins x2 negative discharge diagnoses KATHIE uncontrolled blood pressure pulmonary nodules dyspnea on exertion iron deficiency anemia hospital course by problem: KATHIE. Creatinine initially 2.34 on admission. No baseline for comparison. Patient was treated with IV fluid, creatinine trended down to 1.68. Unclear baseline but patient reported having normal kidney function, waiting old lab work by her daughter. Patient was seen in consultation by Nephrology, protein noted to be elevated. Aldactone added due to uncontrolled blood pressure, leg edema. Once baseline creatinine is established with likely benefit from Arb and SGLT2 inhibitor. Will need further workup to determine etiology of kidney disease, will need outpatient follow up with nephrology. Repeat [facility] recommended in one week. Dyspnea with exertion Echo showed EF of 60 65% with severe LVH and impaired relaxation filling pattern. She was treated with IV lasix. She was seen by Cardiology who did not feel that she was in overt heart failure. She will need outpatient follow-up with Cardiology. Cardiology recommended to discontinue clonidine and start labetalol 200 mg b.i.d. due to uncontrolled hypertension. Multiple Pulmonary nodules. Largest of 0.6 cm, guidelines to follow-up within 6 months. Outpatient PCP follow-up for surveillance CT scans.? Iron deficiency anemia. Seems to be more chronic than acute with no obvious blood loss. Lab work consistent with iron deficiency. Due to Low iron stores, she was treated with IV iron. Will need outpatient follow up. HTN. was continued on home dose of norvasc. Spironolactone and labetalol were added. Clonidine was discontinued. She should follow-up with PCP for close blood pressure monitoring Time Spent with Patient Time attestation: Total time spent providing and/or coordinating discharge services: Discharge coordination time: Greater than 30 minutes Quality: Safe Use of Opioids Does Pt have an Active Cancer Diagnosis on the Problem List?: No Quality: Stroke Does the patient have a stroke diagnosis?: No Physical Exam Vital Signs: Vital Signs: Last Vital Signs Temp 98.0 F 10/18/21 07:21 Pulse 88 10/18/21 07:31 Resp 18 10/18/21 07:31 BP 180/98 H 10/18/21 07:21 Pulse Ox 99 10/18/21 07:21 BMI result Body Mass Index 33.8 Const: General: cooperative, comfortable, alert and awake Nutritional Appearance: overweight Orientation/consciousness: patient oriented x3 Resp: Effort & Inspection: normal respiratory effort and able to speak in complete sentences Auscultation: no wheezes Cardio: Rate: regular rate Heart sounds: S1 normal heart sound present Neuro: General: patient oriented x3 Extrem: Other: 1+ edema DS: Data Data Completed and Pending Labs on day of discharge: Laboratory Results - last 24 hr 10/16/21 10/17/21 10/17/21 07:33 15:47 19:24 Sodium Potassium Chloride Carbon Dioxide Anion Gap BUN Creatinine Estim Creat Clear Calc Estimated GFR POC Glucose 129 H 221 H Random Glucose Calcium PTH Intact 131 H Calcium (PTH Intact) 9.2 10/18/21 10/18/21 10/18/21 07:08 08:36 11:00 Sodium 138 Potassium 4.2 Chloride 104 Carbon Dioxide 21 L Anion Gap 17 BUN 35 H Creatinine 1.68 H Estim Creat Clear Calc 37.5 Estimated GFR 32 POC Glucose 187 H 242 H Random Glucose 231 H Calcium 10.2 D PTH Intact Calcium (PTH Intact) Discharge Plan Discharge Patient Disposition: Home, Self-Care Discharge Diagnosis: KATHIE Anemia leg edema Referrals: Vikash Ulloa MD [Physician] - 1 Week Rohit Tovar MD [Primary Care Provider] - 1 Week Lex Campos MD [Physician] - 1 Week Discharge Medications: New spironolactone 25 mg Tablet 25 mg PO DAILY 30 Days Qty: 30 0RF Protocol: Hold for SBP< HOLD for SBP < : 90 labetalol 200 mg tablet 200 mg PO BID 30 Days Qty: 60 0RF Continued amlodipine 10 mg tablet 1 tab PO DAILY 0RF Lantus Solostar U-100 Insulin 100 unit/mL (3 mL) insulin pen 16 unit subcut BEDTIME 0RF Discontinued clonidine HCl 0.1 mg tablet 1 tab PO DAILY 0RF Discharge Orders: Discharge Order (Routine); Ordered 10/18/21 Ordered By: Paris Rosen Activity on Discharge: As tolerated Stand Alone Forms: Patient Portal Discharge page Print Language: Polish Other Ambulatory Orders: Basic Metabolic Panel (Routine) Timeframe: 1 Week Facility: [facility] - Location: Laboratory Ordered By: Paris Rosen Care Plan Goals: see below Health Concerns: kidney disease high blood pressure leg swelling iron deficiency anemia pulmonary nodules Plan of Treatment: Stop taking clonidine start taking labetalol start taking spironolactone call to schedule follow-up appointment with Cardiology call to schedule follow-up appointment with Nephrology Assessment: see discharge summary
--- NOTE | 2021-10-18 12:17 | MHC.CM.PN ---
Female 56 discharged to home today with family support. Patients dtr will provide transportation home.
--- NOTE | 2021-10-18 12:23 | MHC.CM.PN ---
PT TO [place] HOME WITH NO SERVICES ORDERED DAUGHTER TO TRANSPORT
[2021-10-18 13:35] VITALS: PULSE 87; RESP 18; O2SAT 98
--- NOTE | 2021-10-18 13:45 | P.CONCA_ITS ---
History of Present Illness History of Present Illness Date of Service: 10/18/21 Requesting physician: Paris Rosen Consult reason: shortness of breath Chief complaint: SOB Narrative: I was consulted to see Yeimy in cardiology consult today because of findings on echocardiogram of severe LVH with impaired relaxation filling pattern patient with symptoms of progressive shortness of breath. She also has significant wheezing and has been treated for bronchospastic airway disease, finding also consistent with iron deficiency anemia. Cardiology consult was sought because of echo finding and shortness of breath and leg edema and question for heart failure. Her BNP was 26. Patient has longstanding history of hypertension been on therapy with amlodipine and clonidine also history of diabetes. Patient came in because she was having progressive shortness of breath and wheezing. She also the last 2 weeks has been having leg edema. However she has not been very active and sedentary with leg dependent position. No symptoms of shortness of breath only with exertion. She denies any associated chest discomfort. She has not had any clear episodes of orthopnea, PND. No palpitations, lightheadedness, syncope. Review of Systems Constitutional: Constitutional: Reports no additional constitutional complaints Eyes: Eyes: Reports no additional eye complaints Cardiovascular: Cardiovascular: Denies chest pain, Denies rapid heart rate, Reports leg edema, Denies lightheadedness, Denies Loss of Consciousness, Denies palpitations and Reports dyspnea on exertion Respiratory: Respiratory: Reports no additional respiratory complaints and Reports dyspnea on exertion Gastrointestinal: Gastrointestinal: Reports no additional gastrointestinal complaints Genitourinary: Genitourinary: Reports no additional female genitourinary complaints Musculoskeletal: Musculoskeletal: Reports no additional musculoskeletal complaints Integumentary/Breasts: Skin/Breast: Reports system reviewed and no additional complaints, except as docu Neurologic: Reports system reviewed and no additional complaints, except as documented Psychiatric: Psychiatric: Reports no additional psychiatric complaints Endocrine: Endocrine: Denies palpitations [facility] Past Medical History Medical History (Updated 10/18/21 @ 13:55 by Lex Campos MD) Asthma Diabetes 1.5, managed as type 2 HTN (hypertension) Iron deficiency anemia LVH (left ventricular hypertrophy) Social History Social History Household Members: Children Housing: House Do you presently have visiting nurse or other home services: Yes ([employer]) Patient Tobacco Use Status: Never used Tobacco service: No Current occupational status: disabled Meds Allergies Allergy/AdvReac Type Severity Reaction Status Date / Time shellfish derived Allergy Anaphylaxis Verified 10/14/21 17:49 Active Medications: Current Medications Acetaminophen (Acetaminophen 325 Mg Tablet) 650 mg PO Q6H PRN PRN Reason: Pain, Mild (Pain Scale 1-3) Last Admin: 10/17/21 23:58 Dose: 650 mg Documented by: Albuterol/Ipratropium (Albuterol/Iprat 2.5/0.5mg 3 Ml Ampul.Neb) 3 ml INHALE RQ4H PRN PRN Reason: Shortness of Breath/Wheezing Last Admin: 10/17/21 03:20 Dose: 3 ml Documented by: Albuterol/Ipratropium (Albuterol/Iprat 2.5/0.5mg 3 Ml Ampul.Neb) 3 ml INHALE RQ6H WHILE AWAKE [facility] Last Admin: 10/18/21 13:35 Dose: 3 ml Documented by: Amlodipine Besylate (Amlodipine Besylate 10 Mg Tablet) 10 mg PO DAILY [facility]; Protocol Last Admin: 10/18/21 08:15 Dose: 10 mg Documented by: Benzonatate (Benzonatate 100 Mg Capsule) 100 mg PO TID PRN PRN Reason: Cough Clonidine HCl (Clonidine Hcl 0.1 Mg Tablet) 0.1 mg PO DAILY [facility]; Protocol Last Admin: 10/18/21 08:14 Dose: 0.1 mg Documented by: Dextrose (Dextrose 50 % 25 Gm/50 Ml Syringe) 25 gm IVPUSH Q15M PRN; Protocol PRN Reason: per Hypoglycemia Standing Ord. Ferrous Sulfate (Ferrous Sulfate 324 Mg Tablet.) 324 mg PO DAILY [facility] Last Admin: 10/18/21 08:15 Dose: 324 mg Documented by: Furosemide (Furosemide 20 Mg/2 Ml Vial) 40 mg IVPUSH DAILY@0800 [facility]; Protocol Last Admin: 10/18/21 08:14 Dose: 40 mg Documented by: Glucose (Glucose Gel 15 Gm Gel..Gram.) 15 gm PO Q15M PRN; Protocol PRN Reason: per Hypoglycemia Standing Ord. Heparin Sodium (Porcine) (Heparin Sodium,Porcine 5,000 Unit/Ml Vial) 5,000 unit SUBCUT Q8H [facility] Last Admin: 10/18/21 08:14 Dose: 5,000 unit Documented by: Insulin Human Lispro (Insulin Lispro 100 Unit/Ml 3 Ml Vial) 0 unit SUBCUT QIDACHS [facility]; Protocol Last Admin: 10/18/21 11:25 Dose: 4 unit Documented by: Lorazepam (Lorazepam 0.5 Mg Tablet) 0.5 mg PO Q12H PRN PRN Reason: anxiety/restlessness Last Admin: 10/17/21 20:14 Dose: 0.5 mg Documented by: Melatonin (Melatonin 3 Mg Tablet) 6 mg PO BEDTIME PRN PRN Reason: Insomnia Last Admin: 10/16/21 23:49 Dose: 6 mg Documented by: Pharmacy Consult (Consult Rx Perform Med Rec) 1 each MISCELLANE ONCE PRN PRN Reason: Consult order Senna (Sennosides 8.6 Mg Tablet) 17.2 mg PO BEDTIME PRN PRN Reason: Constipation Sodium Chloride (0.9 % Sodium Chloride Flush 3 Ml Syringe) 3 ml IVFLUSH QSHIFT [facility] Last Admin: 10/18/21 08:14 Dose: 3 ml Documented by: Spironolactone (Spironolactone 25 Mg Tablet) 25 mg PO DAILY [facility]; Protocol Last Admin: 10/18/21 08:14 Dose: 25 mg Documented by: Home Medications Medication Instructions Recorded Confirmed Last Taken Type amlodipine 10 mg tablet 1 tab PO DAILY 10/14/21 10/14/21 Unknown History insulin glargine 100 unit/mL (3 16 unit SUBCUT BEDTIME 10/14/21 10/14/21 Unknown History mL) subcutaneous pen (Lantus Solostar U-100 Insulin) Physical Exam Vital Signs: Vital Signs: Last Vital Signs Temp 98.0 F 10/18/21 07:21 Pulse 87 10/18/21 13:35 Resp 18 10/18/21 13:35 BP 180/98 H 10/18/21 07:21 Pulse Ox 99 10/18/21 07:21 BMI result Body Mass Index 33.8 Const: General: cooperative, comfortable, no acute distress, alert and awake Nutritional Appearance: obese Orientation/consciousness: patient oriented x3 Limitations: no limitations HEENT: Head: Yes normocephalic and Yes atraumatic Neck: Neck: Yes trachea midline, Yes supple and Yes no JVD (Although difficult to evaluate) Chest: Chest palpation & inspection: normal inspection of the chest Resp: Effort & Inspection: normal respiratory effort Auscultation: wheezes and diminished lung sounds Cardio: Jugular venous distension: no JVD Palpation: normal PMI Rate: regular rate Rhythm: regular rhythm Heart sounds: S1 normal heart sound present, S2 normal heart sound present, no click, no gallops, no murmurs and Other heart sounds present (S4 present) GI: Auscultation: normal bowel sounds Skin: General skin exam: no rashes or lesions noted Neuro: General: patient oriented x3 and no focal motor deficits Extrem: General: No clubbing, No cyanosis and Yes edema Objective Labs and Meds Result diagrams: 10/17/21 05:57 10/18/21 08:36 Lab results: Laboratory Results - last 24 hr 10/16/21 10/17/21 10/17/21 07:33 15:47 19:24 Sodium Potassium Chloride Carbon Dioxide Anion Gap BUN Creatinine Estim Creat Clear Calc Estimated GFR POC Glucose 129 H 221 H Random Glucose Calcium PTH Intact 131 H Calcium (PTH Intact) 9.2 10/18/21 10/18/21 10/18/21 07:08 08:36 11:00 Sodium 138 Potassium 4.2 Chloride 104 Carbon Dioxide 21 L Anion Gap 17 BUN 35 H Creatinine 1.68 H Estim Creat Clear Calc 37.5 Estimated GFR 32 POC Glucose 187 H 242 H Random Glucose 231 H Calcium 10.2 D PTH Intact Calcium (PTH Intact) Assessment and Plan (1) LVH (left ventricular hypertrophy): Status: Acute Patient presents with progressive symptoms of shortness of breath with suggestion of bronchospastic airway disease with bilateral leg edema could be due to dependent leg edema. Although congestive heart failure is possible it is highly unlikely given that she does not have central venous congestion, BNP is within normal limits and she does not have evidence of right atrial pressure increases on echocardiogram. Her exertional shortness of breath could be related to her significant LVH but without overt heart failure. Also likely her shortness of breath related to her bronchospastic airway disease. Continue treat the same. Her significant LVH is concerning and could be due to end-organ damage from her hypertension which remains poorly controlled. Also possibility of underlying obstructive sleep apnea will need outpatient study for the same. Also shortness of breath need to rule out significant coronary disease as she has multiple risk factors for the same. Other possibilities of significant LV wall thickness is infiltrative diseases such as amyloidosis as sarcoidosis. May pursue outpatient MRI at some point time in the future. Her blood pressure remains very uncontrolled and she is on dual therapy. Clonidine is a poor antihypertensive therapy. Switch to labetalol 200 mg b.i.d.. Continue amlodipi ne. Workup for secondary hypertension should be pursued aggressively including endocrine as well as obstructive sleep apnea. Consider renal artery duplex as well. At this point time will sign of the case and will follow-up as outpatient Procedures Date of Service Date of Service: 10/18/21
[2021-10-22 14:11] LABS: Vitamin D 25-OH, D2 <4 ng/mL; Vitamin D 25-OH, D3 8 ng/mL; Vitamin D 25-OH, Total 8 ng/mL (30-100)
== END 2021-10-18 14:29 | disposition home or self-care (01) | DRG 684 ==
LOC: HO.ED 21:47 → HO.EDOVER 23:42 → HO.IMC 10-16 19:10
PROVIDERS: Emergency Medicine; Internal Medicine; Internal Medicine Nephrology; Physician Assistant Medical; Student in an Organized Health Care Education/Training Program; Admitting Provider Hospitalist; Emergency Provider Emergency Medicine; PCP Student in an Organized Health Care Education/Training Program; Visit Provider Physician Assistant Medical
DX: N17.9 Acute kidney failure, unspecified (principal); N18.9 Chronic kidney disease, unspecified; N25.0 Renal osteodystrophy; R91.8 Other nonspecific abnormal finding of lung field; J45.20 Mild intermittent asthma, uncomplicated; I51.7 Cardiomegaly; D50.9 Iron deficiency anemia, unspecified; I12.9 Hypertensive chronic kidney disease with stage 1 through stage 4 chronic kidney disease, or unspecified chronic kidney disease; E13.22 Other specified diabetes mellitus with diabetic chronic kidney disease; Z20.822 Contact with and (suspected) exposure to COVID-19; Z91.013 Allergy to seafood; Z79.4 Long term (current) use of insulin; Z79.899 Other long term (current) drug therapy
CPT/HCPCS: 36415; 71046; 74176; 80048; 80076; 81001; 82043; 82306; 82550; 82607; 82746; 82803; 82947; 83540; 83615; 83735; 83880; 83970; 84100; 84156; 84484; 85025; 85027; 85379; 87502; 87635; 93005; 93306; 93970; 94640; 99285; J0885; J1940; J2916